=== PATIENT | female | born 1960 | race Caucasian/White ===

== ENCOUNTER 2020-04-29 13:10 | Emergency (ER) | payer MEDICARE, SELFPAY ==
[2020-04-29 13:15] VITALS: BP 113/59; PULSE 87; RESP 20; TEMP 36.4; O2SAT 98; BMI 22.8
--- NOTE | 2020-04-29 13:48 | XR_ITS ---
WS: [id number] PORTABLE CHEST HISTORY: chest pain COMPARISON: 03/04/2018 Mild pulmonary hyperinflation. Eventration of the LEFT hemidiaphragm. No pleural effusion or pneumoth orax. Cardiac size: Normal. Mediastinum/Aorta: Mild atherosclerosis aorta. No osseous abnormality seen. XR/XR chest 1V portable [id number] IMPRESSION: Mild hyperinflation. No pneumonia.
[2020-04-29 15:03] VITALS: BP 140/83; PULSE 79; RESP 16; O2SAT 99
--- NOTE | 2020-04-29 15:42 | W.ED.SOB ---
Documented by User: REMY Gallardo 05/01/20 06:59 HPI - SOB/Dyspnea General: Chief Complaint: Shortness of Breath/Dyspnea Stated Complaint: COPD complications Time Seen by Provider: 04/29/20 15:40 Source: patient Mode of arrival: ambulatory Limitations: no limitations History of Present Illness: HPI Narrative: Patient is a 59-year-old female with a history of COPD who presents to ED today with a complaint of shortness of breath over the past 3 to 4 days. Patient tells me she normally wears oxygen at night and sometimes with exertion but often can go throughout the day without wearing it. Patient tells me over the past 3 to 4 days she has had to wear her oxygen continuously. Patient is being managed by her PCP, Dr. Haq. Patient tells me she currently takes Spiriva, albuterol, and Dulera. Patient is not having any chest pain. She denies fevers, chills, body aches. Patient has not had any exposure to COVID. Patient continues to smoke sparingly-her last cigarette was yesterday. MD elicited complaint: shortness of breath Pertinent past history: COPD Onset (ago): day(s) Timing: constant Associated symptoms: Deny chest congestion, chest pain, fever(s), hemoptysis, lightheadedness, nausea, palpitations, syncope or vomiting Review of Systems Const: Denies: fever(s), chills, body aches, fatigue or malaise Card: Reports: dyspnea on exertion; Denies: chest pain, palpitations, irregular heart rhythm, edema, lightheadedness, syncope or pre-syncope Resp: Reports: dyspnea; Denies: productive cough, non-productive cough, pain on inspiration, hemoptysis or chest congestion GI: Denies: nausea or vomiting Neuro: Denies: headache(s) PFSH ED PFSH: Social History Smoking and tobacco status: current every day smoker Alcohol intake: never Housing: House Marital status: Current occupational status: disabled History of recent travel: No Physical Exam Const: COMMON NORMALS: no acute distress, average body habitus, patient oriented x3, no limitations, alert and well nourished GENERAL APPEARANCE: cooperative ORIENTATION/CONSCIOUSNESS: Yes awake, Yes oriented to person, Yes oriented to place and Yes oriented to time Resp: COMMON NORMALS: normal respiratory effort AUSCULTATION: other (course breath sounds throughout; improvement with coughing) Cardio: COMMON NORMALS: regular rate and regular rhythm RATE: regular rate RHYTHM: regular rhythm Extremity: COMMON NORMALS: no clubbing, cyanosis or edema, no calf tenderness and no pedal edema Neuro: COMMON NORMALS: patient oriented x3 SENSORIUM/ORIENTATION: Yes alert, Yes oriented to person, Yes oriented to place and Yes oriented to time Skin: COMMON NORMALS: no rashes or lesions noted GENERAL SKIN EXAM: no rashes or lesions noted Course Vital Signs: Vital signs: Vital Signs Temperature 97.6 F 04/29/20 13:15 Pulse Rate 74 04/29/20 18:54 Respiratory Rate 18 04/29/20 18:54 Blood Pressure 135/74 04/29/20 18:54 Pulse Oximetry 96 04/29/20 18:54 MDM - SOB/Dyspnea MDM Narrative: Medical decision making narrative: Care transferred to Nicolas Conte PA-C at shift change- Lab Data: Labs: Lab Results 04/29/20 04/29/20 04/29/20 Range/Units 15:47 16:36 16:36 WBC 12.7 H (4.0-10.0) 10^3/ uL RBC 4.67 (4.1-5.3) 10^6/u L Hgb 13.1 (11.5-15.3) g/dL Hct 42.3 (37.0-47.0) % MCV 90.6 (81-99) fL MCH 28.1 (28.0-34.0) pg MCHC 31.0 (30.0-36.0) g/dL RDW 13.0 (12.1-15.1) % Plt Count 478 H (130-400) 10^3/c mm MPV 8.2 (7.4-10.4) fL Neut % (Auto) 60.8 % Lymph % (Auto) 26.6 % [place] % (Auto) 6.8 % Eos % (Auto) 4.8 % Baso % (Auto) 0.5 % Neut # (Auto) 7.73 H (1.8-7.7) 10^3/u L Lymph # (Auto) 3.4 (0.8-4.8) 10^3/u L [place] # (Auto) 0.9 (0.2-0.9) 10^3/u L Eos # (Auto) 0.6 (0.0-0.8) 10^3/u L Baso # (Auto) 0.1 (0.0-0.1) 10^3/u L Nucleated RBC % (a uto) 0 % Nucleated RBCs # 0.0 /100WBC Sodium 134 L (136-145) mmol/L Potassium 4.6 (3.5-5.1) mmol/L Chloride 96 L (98-107) mmol/L Carbon Dioxide 30 H (22-29) mmol/L Anion Gap 12.6 (5-19) BUN 8 (8-23) mg/dL Creatinine 0.5 (0.5-0.9) mg/dL GFR Calculation 125.4 (90-130) mL/min Glucose 121 H (65-115) mg/dL Calculated Osmolal ity 278 L (285-295) mOsm/k g Calcium 9.1 (8.5-10.5) mg/dL Total Bilirubin 0.2 (0.15-1.2) mg/dL AST 12 (0-32) U/L ALT 11 (0-33) U/L Alkaline Phosphata se 67 (35-105) IU/L Total Protein 6.4 L (6.6-8.7) g/dL Albumin 4.1 (3.5-5.2) g/dL Globulin 2.3 (1.3-4.6) g/dL SARS-CoV-2 RNA (RT -PCR) Not detected (NOT DETECTED) Discharge Plan Discharge Patient Disposition: Home Clinical Impression: COPD exacerbation Condition: Stable Prescriptions: New levofloxacin 750 mg tablet 750 mg PO DAILY 5 Days Qty: 5 RF: 0 Medrol (Josue) 4 mg tablets,dose pack See Rx Instructions .ROUTE .COMPLEX Qty: 21 RF: 0 No Action loratadine 10 mg capsule 10 mg PO DAILY@0800 RF: 0 (DME) Oxygen Concentrator and portable tanks See Rx Instructions .Route .MEDSUPPLY Qty: 1 RF: 0 albuterol sulfate [ProAir HFA] 90 mcg/actuation HFA aerosol inhaler 1 - 2 puff INHALATION Q6H PRN (Reason: shortness of breath) Qty: 6.7 RF: 3 prednisone 20 mg tablet 10 mg PO DAILY@0800 RF: 0 trazodone 150 mg tablet 150 mg PO BEDTIME@1999 RF: 0 Advair Diskus 500-50 mcg/dose blister with device 1 inh INHALATION BID@0800,1999 RF: 0 Spiriva with HandiHaler 18 mcg capsule, w/inhalation device See Rx Instructions .ROUTE .COMPLEX RF: 0 tizanidine 4 mg capsule 4 mg PO BEDTIME@1999 RF: 0 Discharge Orders: Discharge ED (Routine); Ordered 04/29/20 Ordered By: Nicolas Conte Referrals: Ludwig Haq MD [Primary Care Provider] - Discharge Diet: Regular Discharge Activity: Increase activity as tolerated Patient Instructions: Chronic Obstructive Pulmonary Disease (ED) Activity Restrictions/Additional Instructions: Follow-up with medical provider as directed in 7 days. Take medications as prescribed. You were tested for COVID-19 today and the test is pending. Results should be back within the next 24 to 48 hours. The hospital will call you with test results or you can call appear to find out test results as well. Remember to self quarantine for the next couple days pending COVID-19 test results. If test is positive continue self quarantine for the next 12 days. Use your inhalers as previously prescribed and use oxygen as previously prescribed at home as well. Return to the ER or your medical provider if condition worsens. Please read and understand discharge instructions. If any questions, please ask. Coding Level of Care Code ED Rabble Furnace Tender for Chg Fwd Exam Detailed Documented by User: REMY Turpin 04/30/20 03:05 HPI - SOB/Dyspnea General: Chief Complaint: Shortness of Breath/Dyspnea Stated Complaint: COPD complications Time Seen by Provider: 04/29/20 15:40 PFSH ED PFSH: Social History Smoking and tobacco status: current every day smoker Alcohol intake: never Housing: House Marital status: Current occupational status: disabled History of recent travel: No Course Reevaluation(s): Reevaluation #1: Patient was sitting on chair in room when I went in to talk with patient about all the lab findings and chest x-ray report. Patient's O2 saturation was above 95% on room air and she was not wearing nasal cannula. Patient says she is feeling better now after getting Solu-Medrol and the DuoNeb breathing treatment. Vital Signs: Vital signs: Vital Signs Temperature 97.6 F 04/29/20 13:15 Pulse Rate 74 04/29/20 18:54 Respiratory Rate 18 04/29/20 18:54 Blood Pressure 135/74 04/29/20 18:54 Pulse Oximetry 96 04/29/20 18:54 MDM - SOB/Dyspnea MDM Narrative: Medical decision making narrative: Patient is a 59-year-old female with COPD and presents to the ED with shortness of breath. pt on oxygen at home at night and also can wear as needed during the day. Exam findings showed coarse breath sounds throughout with improvement when coughing. White blood cell count 12.7 and the rest of CBC and CMP was unremarkable. COVID-19 testing sent out and is pending. Chest x-ray showed no acute infiltrates or pneumonia seen. Patient was given DuoNeb breathing treatment and Solu-Medrol in the ED. Patient said her symptoms have improved and she is feeling better. Patient was discharged and given self quarantine instructions. She was told to return to ED if she has any worsening of symptoms. Follow-up with PCP in 7 to 10 days. Patient was sent home with a prescription for levofloxacin and Medrol Dosepak. Patient understood and agreed with plan. Lab Data: Attestation: I reviewed the patient's lab results. Labs: Lab Results 04/29/20 04/29/20 04/29/20 Range/Units 15:47 16:36 16:36 WBC 12.7 H (4.0-10.0) 10^3/ uL RBC 4.67 (4.1-5.3) 10^6/u L Hgb 13.1 (11.5-15.3) g/dL Hct 42.3 (37.0-47.0) % MCV 90.6 (81-99) fL MCH 28.1 (28.0-34.0) pg MCHC 31.0 (30.0-36.0) g/dL RDW 13.0 (12.1-15.1) % Plt Count 478 H (130-400) 10^3/c mm MPV 8.2 (7.4-10.4) fL Neut % (Auto) 60.8 % Lymph % (Auto) 26.6 % [place] % (Auto) 6.8 % Eos % (Auto) 4.8 % Baso % (Auto) 0.5 % Neut # (Auto) 7.73 H (1.8-7.7) 10^3/u L Lymph # (Auto) 3.4 (0.8-4.8) 10^3/u L [place] # (Auto) 0.9 (0.2-0.9) 10^3/u L Eos # (Auto) 0.6 (0.0-0.8) 10^3/u L Baso # (Auto) 0.1 (0.0-0.1) 10^3/u L Nucleated RBC % (a uto) 0 % Nucleated RBCs # 0.0 /100WBC Sodium 134 L (136-145) mmol/L Potassium 4.6 (3.5-5.1) mmol/L Chloride 96 L (98-107) mmol/L Carbon Dioxide 30 H (22-29) mmol/L Anion Gap 12.6 (5-19) BUN 8 (8-23) mg/dL Creatinine 0.5 (0.5-0.9) mg/dL GFR Calculation 125.4 (90-130) mL/min Glucose 121 H (65-115) mg/dL Calculated Osmolal ity 278 L (285-295) mOsm/k g Calcium 9.1 (8.5-10.5) mg/dL Total Bilirubin 0.2 (0.15-1.2) mg/dL AST 12 (0-32) U/L ALT 11 (0-33) U/L Alkaline Phosphata se 67 (35-105) IU/L Total Protein 6.4 L (6.6-8.7) g/dL Albumin 4.1 (3.5-5.2) g/dL Globulin 2.3 (1.3-4.6) g/dL SARS-CoV-2 RNA (RT -PCR) Not detected (NOT DETECTED) Imaging Data^: CXR: Attestation: I personally reviewed and interpreted this imaging study as follows: Radiologist's impression: [address] [place] [address] XRay Report Signed Patient: Lynne Calderon #: [id number] : 9Acct#:[id number] Age/Sex: 59 / FADM Date: 04/29/20 Loc: ERRoom/Bed: Attending Dr: Ordering Provider/Ordering MD: Vanessa Serrano Date of Service: 04/29/20 Procedure(s): XR chest 1V portable [id number] Accession Number(s): [id number] Report Number: [id number] WS: [id number] PORTABLE CHEST HISTORY: chest pain COMPARISON: 03/04/2018 Mild pulmonary hyperinflation. Eventration of the LEFT hemidiaphragm. No pleural effusion or pneumothorax. Cardiac size: Normal. Mediastinum/Aorta: Mild atherosclerosis aorta. No osseous abnormality seen. XR/XR chest 1V portable [id number] IMPRESSION: Mild hyperinflation. No pneumonia. Dictated By:Cassy Oliver DO Signed By:Cassy Oliver DOSigned Date/Time:04/29/201406 DD/ 140 Discharge Plan Discharge Patient Disposition: Home Clinical Impression: COPD exacerbation Condition: Stable Prescriptions: New levofloxacin 750 mg tablet 750 mg PO DAILY 5 Days Qty: 5 RF: 0 Medrol (Josue) 4 mg tablets,dose pack See Rx Instructions .ROUTE .COMPLEX Qty: 21 RF: 0 No Action loratadine 10 mg capsule 10 mg PO DAILY@0800 RF: 0 (DME) Oxygen Concentrator and portable tanks See Rx Instructions .Route .MEDSUPPLY Qty: 1 RF: 0 albuterol sulfate [ProAir HFA] 90 mcg/actuation HFA aerosol inhaler 1 - 2 puff INHALATION Q6H PRN (Reason: shortness of breath) Qty: 6.7 RF: 3 prednisone 20 mg tablet 10 mg PO DAILY@0800 RF: 0 trazodone 150 mg tablet 150 mg PO BEDTIME@2000 RF: 0 Advair Diskus 500-50 mcg/dose blister with device 1 inh INHALATION BID@0800,1999 RF: 0 Spiriva with HandiHaler 18 mcg capsule, w/inhalation device See Rx Instructions .ROUTE .COMPLEX RF: 0 tizanidine 4 mg capsule 4 mg PO BEDTIME@1999 RF: 0 Discharge Orders: Discharge ED (Routine); Ordered 04/29/20 Ordered By: Nicolas Conte Referrals: Ludwig Haq MD [Primary Care Provider] - Discharge Diet: Regular Discharge Activity: Increase activity as tolerated Patient Instructions: Chronic Obstructive Pulmonary Disease (ED) Activity Restrictions/Additional Instructions: Follow-up with medical provider as directed in 7 days. Take medications as prescribed. You were tested for COVID-19 today and the test is pending. Results should be back within the next 24 to 48 hours. The hospital will call you with test results or you can call appear to find out test results as well. Remember to self quarantine for the next couple days pending COVID-19 test results. If test is positive continue self quarantine for the next 12 days. Use your inhalers as previously prescribed and use oxygen as previously prescribed at home as well. Return to the ER or your medical provider if condition worsens. Please read and understand discharge instructions. If any questions, please ask. Coding Level of Care Code ED Rabble Furnace Tender for Justin Fwd Exam Detailed
[2020-04-29 15:43] VITALS: BP 168/101; PULSE 80; RESP 16; O2SAT 95
[2020-04-29 16:43] LABS: Basophils # 0.1 10^3/uL (0.0-0.1); Basophils % 0.5 %; Eosinophils # 0.6 10^3/uL (0.0-0.8); Eosinophils % 4.8 %; Hematocrit 42.3 % (37.0-47.0); Hemoglobin 13.1 g/dL (11.5-15.3); Lymphocytes # 3.4 10^3/uL (0.8-4.8); Lymphocytes % 26.6 %; Mean Corpuscular Hemoglobin 28.1 pg (28.0-34.0); Mean Corpuscular Volume 90.6 fL (81-99); Mean Platelet Volume 8.2 fL (7.4-10.4); Monocytes # 0.9 10^3/uL (0.2-0.9); Monocytes % 6.8 %; Neutrophils # 7.73 10^3/uL (1.8-7.7); Neutrophils % 60.8 %; Nucleated Red Blood Cells % 0 %; Platelet Count 478 10^3/cmm (130-400); Red Blood Count 4.67 10^6/uL (4.1-5.3); White Blood Count 12.7 10^3/uL (4.0-10.0)
[2020-04-29] MEDS: ipratropium-albuterol 3 mL Neb INHALATION (16:45)
[2020-04-29 16:46] VITALS: PULSE 76; RESP 17; O2SAT 99
[2020-04-29 16:52] VITALS: PULSE 78
[2020-04-29 17:08] LABS: Alanine Aminotransferase 11 U/L (0-33); Albumin Level 4.1 g/dL (3.5-5.2); Alkaline Phosphatase 67 IU/L (35-105); Anion Gap 12.6 (5-19); Aspartate Amino Transferase 12 U/L (0-32); Blood Urea Nitrogen 8 mg/dL (8-23); Calcium 9.1 mg/dL (8.5-10.5); Carbon Dioxide 30 mmol/L (22-29); Chloride 96 mmol/L (98-107); Globulin 2.3 g/dL (1.3-4.6); Glomerular Filtration Rate 125.4 mL/min (90-130); Glucose 121 mg/dL (65-115); Osmolality Calculated 278 mOsm/kg (285-295); Potassium 4.6 mmol/L (3.5-5.1); Sodium 134 mmol/L (136-145); Total Bilirubin 0.2 mg/dL (0.15-1.2); Total Protein 6.4 g/dL (6.6-8.7)
[2020-04-29 18:54] VITALS: BP 135/74; PULSE 74; RESP 18; O2SAT 96
--- NOTE | 2020-04-29 19:12 | ECG_ITS ---
[facility] Test Date: 2020-04-29 Pat Name: Lynne Calderon Department: Room: Gender: Female [employer]: : 1960 Requested By: Nicolas Conte Order Number: [id number] Ann MD: Quirino Mcfadden M.D. Measurements Intervals [place] Rate: 100 P: 84 IN: 130 QRS: 77 QRSD: 96 T: 73 QT: 323 QTc: 417 Interpretive Statements SINUS TACHYCARDIA NONSPECIFIC T-WAVE ABNORMALITY Compared to ECG 01/11/2018 15:38:32 T-wave abnormality now present Sinus rhythm no longer present Electronically Signed On 04-29-2020 19:32:56 RIG BUILDER by Quirino Mcfadden M.D. [email or web address]/store/[id number] f
[2020-04-30 20:53] LABS: Quest SARS-CoV-2 RNA NOT DETECTED (NOT DETECTED)
--- NOTE | 2020-05-01 09:47 | PC.NURSE ---
Patient notified of COVID results at this time.
== END 2020-04-29 18:55 | disposition home or self-care (01) ==
PROVIDERS: Physician Assistant; Emergency Provider Physician Assistant; PCP Internal Medicine
DX: J44.1 Chronic obstructive pulmonary disease with (acute) exacerbation (principal); F17.210 Nicotine dependence, cigarettes, uncomplicated
CPT/HCPCS: 12345; 36415; 71045; 80053; 85025; 87635; 93005; 94640; 96374; 99282; 99283; J2930

== ENCOUNTER 2020-07-12 05:26 | Inpatient (IN) | payer MEDICARE, SELFPAY ==
[2020-07-12] VITALS (41 sets, daily range): BP systolic 103–187; BP diastolic 58–101; PULSE 65–103; RESP 13–31; TEMP 36.4–37.1; O2SAT 91–100; BMI 22.1
--- NOTE | 2020-07-12 05:31 | XR_ITS ---
WS: [id number] XR chest 1V portable [id number] REASON FOR EXAM: dizziness FINDINGS: The chest is unchanged compared to previous examination of 04/29/2020. The heart and mediastinum are within normal limits. Minor calcified granulomatous changes in both hemithoraces. Chronic fibronodular changes in both lung apices. No active pulmonary parenchymal pleural disease. Flattening of the hemidiaphragms suggesting hyperexp ansion slice obstructive lung disease. XR/XR chest 1V portable [id number] IMPRESSION: No acute chest abnormality. Hyperexpansion as above.
--- NOTE | 2020-07-12 05:31 | CTR_ITS ---
PROCEDURE INFORMATION: Exam: CT Head Without Contrast Exam date and time: 07/12/2020 5:35 AM Age: 60 years old Clinical indication: Patient HX: Dizziness and lethargy TECHNIQUE: Imaging protocol: Computed tomography of the head without contrast. Radiation optimization: All CT scans at this facility use at least one of these dose optimization techniques: automated exposure control; mA and/or kV adjustment per patient size (includes targeted exams where dose is matched to clinical indication); or iterative reconstruction. COMPARISON: No relevant prior studies available. RADIATION DOSE METRICS: Total DLP (mGy-cm): 651.73 FINDINGS: Brain: Normal. No hemorrhage. Unremarkable white matter. No mass effect. Cerebral ventricles: No ventriculomegaly. Bones/joints: Unremarkable. No acute fracture. Paranasal sinuses: Visualized sinuses are unremarkable. No fluid levels. Mastoid air cells: Visualized mastoid air cells are well aerated. Soft tissues: Unremarkable. CT/CT head wo con* [id number] IMPRESSION: No acute intracranial abnormality. Radiation Dose CTDIVOL = (mGy): DLP = 651.73 (mGy-cm)
--- NOTE | 2020-07-12 05:32 | ECG_ITS ---
[facility] Test Date: 2020-07-12 Pat Name: Lynne Calderon Department: Room: Gender: Female Director Of Billing: : 1960 Requested By: Concetta Del Angel Order Number: [id number] Ann MD: Carline Sears M.D. Measurements Intervals [place] Rate: 64 P: 80 TX: 155 QRS: 54 QRSD: 93 T: 56 QT: 418 QTc: 434 Interpretive Statements SINUS RHYTHM Compared to ECG 04/29/2020 13:25:24 Sinus tachycardia no longer present T-wave abnormality no longer present Electronically Signed On 07-12-2020 23:11:37 CDT by Carline Sears M.D. [id number]
--- NOTE | 2020-07-12 05:33 | ED_ITS ---
Documented by User: Concetta Del Angel MD 07/12/20 05:44 HPI - Dizziness General: Chief Complaint: Shortness of Breath/Dyspnea Stated Complaint: SOB, N/V Time Seen by Provider: 07/12/20 05:31 Source: patient and EMS Mode of arrival: EMS Limitations: no limitations History of Present Illness: HPI Narrative: 60-year-old female who is here by EMS states she has been extremely dizzy over the last 2 days. She states that she has had difficulty walking and feels like the room is spinning especially with sudden movements. She is also had nausea and vomiting. She states it improves slightly with rest. She states that she is also been out of her trazodone for last week and has been feeling anxious and feeling like she cannot get a deep breath and is having shortness of breath. Here she is in no distress and is on her 3 L at baseline and 100% on that. She denies any chest pain. She has vomited on the way here Associated symptoms: Reports nausea and vomiting; Denies chest pain or chills Review of Systems Const: Denies: fever(s), chills, body aches or change in appetite Eyes: Denies: blurry vision or eye discomfort ENMT: Denies: throat pain or dental pain Card: Denies: chest pain Resp: Denies: dyspnea GI: Reports: nausea and vomiting : Denies: dysuria Musc: Denies: neck pain or back pain Skin/Breast: Denies: rash Neuro: Reports: difficulty walking and dizziness Psych: Denies: depression Cristofer/Lymph: Denies: easy bruising All/Imm: Denies: urticaria PFS ED PFSH: Social History Smoking and tobacco status: current every day smoker Alcohol intake: never Housing: House Marital status: Current occupational status: disabled History of recent travel: No Physical Exam Const: COMMON NORMALS: no acute distress, patient oriented x3 and healthy appearing HENMT: COMMON NORMALS: normocephalic and atraumatic HEAD & SCALP: normocephalic and atraumatic Eye: COMMON NORMALS: Equal, round and reactive pupils present and EOMs intact bilaterally PUPIL: Yes Equal, round and reactive pupils present Neck/C-Spine: COMMON NORMALS: full ROM and supple Chest: COMMONS NORMALS: normal inspection of the chest and normal palpation of entire chest wall Resp: COMMON NORMALS: normal respiratory effort, No retractions, No use of accessory muscles and clear to auscultation bilaterally AUSCULTATION: clear to auscultation bilaterally Cardio: COMMON NORMALS: regular rate, regular rhythm and No murmurs present (Cardio) RATE: regular rate RHYTHM: regular rhythm GI: COMMON NORMALS: Normal to inspection, nondistended, normoactive bowel sounds present, Soft to palpation, non-tender and no masses PALPATION: Yes Soft to palpation Extremity: COMMON NORMALS: normal to inspection and full ROM Neuro: COMMON NORMALS: patient oriented x3 and moves all extremities CRANIAL NERVES: Yes CN normal except as noted SPEECH: speech normal MOTOR EXAM: 5/5 motor strength present throughout Psych: COMMON NORMALS: mental status grossly normal, Normal thought process present and cooperative THOUGHT PROCESS: Normal thought process present Skin: COMMON NORMALS: no rashes or lesions noted and no wounds GENERAL SKIN EXAM: no rashes or lesions noted Course Vital Signs: Vital signs: Vital Signs Temperature 97.6 F 07/12/20 05:27 Pulse Rate 67 07/12/20 07:11 Respiratory Rate 22 H 07/12/20 07:11 Blood Pressure 166/91 07/12/20 07:11 Pulse Oximetry 100 07/12/20 07:11 MDM - Dizziness Lab Data: Labs: Lab Results 07/12/20 07/12/20 07/12/20 Range/Units 05:15 05:25 05:25 WBC 17.3 H (4.0-10.0) 10^3/ uL RBC 4.50 (4.1-5.3) 10^6/u L Hgb 12.8 (11.5-15.3) g/dL Hct 37.9 (37.0-47.0) % MCV 84.2 (81-99) fL MCH 28.4 (28.0-34.0) pg MCHC 33.8 (30.0-36.0) g/dL RDW 12.7 (12.1-15.1) % Plt Count 554 H (130-400) 10^3/c mm MPV 8.2 (7.4-10.4) fL Neut % (Auto) 81.2 % Lymph % (Auto) 12.7 % [place] % (Auto) 4.3 % Eos % (Auto) 0.1 % Baso % (Auto) 0.3 % Neut # (Auto) 14.07 H (1.8-7.7) 10^3/u L Lymph # (Auto) 2.2 (0.8-4.8) 10^3/u L [place] # (Auto) 0.7 (0.2-0.9) 10^3/u L Eos # (Auto) 0.0 (0.0-0.8) 10^3/u L Baso # (Auto) 0.1 (0.0-0.1) 10^3/u L Nucleated RBC % (a uto) 0 % Nucleated RBCs # 0.0 /100WBC Sodium 117 L* (136-145) mmol/L Potassium 4.0 (3.5-5.1) mmol/L Chloride 83 L (98-107) mmol/L Carbon Dioxide 23 (22-29) mmol/L Anion Gap 15.0 (5-19) BUN 7 L (8-23) mg/dL Creatinine 0.4 L (0.5-0.9) mg/dL GFR Calculation 161.7 H (90-130) mL/min Glucose 106 (65-115) mg/dL Calculated Osmolal ity 242 L (285-295) mOsm/k g Calcium 8.6 (8.5-10.5) mg/dL Total Bilirubin 0.7 (0.15-1.2) mg/dL AST 18 (0-32) U/L ALT 11 (0-33) U/L Alkaline Phosphata se 74 (35-105) IU/L NT-Pro-B Natriuret Pep 551 H (0-125) pg/mL Total Protein 6.7 (6.6-8.7) g/dL Albumin 4.3 (3.5-5.2) g/dL Globulin 2.4 (1.3-4.6) g/dL Lipase 11 L (13-60) U/L TSH 1.12 (0.27-4.20) uIU/ mL Urine Color (Yellow) Urine Appearance (CLEAR) Urine pH (5-7) Ur Specific Gravit y (1.005-1.030) Urine Protein (Negative) Urine Glucose (UA) (Normal) Urine Ketones (Negative) Urine Blood (Negative) Urine Nitrate (Negative) Urine Bilirubin (Negative) Prot Sulfosalicyli c Acd (Negative) Urine Urobilinogen (Negative) mg/dL Ur Leukocyte Taya ase (Negative) Urine RBC (0-2) /hpf Urine WBC (0-5) /hpf Ur Squamous Epith Cells (0-5) /hpf Amorphous Sediment /hpf Urine Bacteria (NONE) /hpf Urine Mucus /hpf 07/12/20 Range/Units 06:03 WBC (4.0-10.0) 10^3/ uL RBC (4.1-5.3) 10^6/u L Hgb (11.5-15.3) g/dL Hct (37.0-47.0) % MCV (81-99) fL MCH (28.0-34.0) pg MCHC (30.0-36.0) g/dL RDW (12.1-15.1) % Plt Count (130-400) 10^3/c mm MPV (7.4-10.4) fL Neut % (Auto) % Lymph % (Auto) % [place] % (Auto) % Eos % (Auto) % Baso % (Auto) % Neut # (Auto) (1.8-7.7) 10^3/u L Lymph # (Auto) (0.8-4.8) 10^3/u L [place] # (Auto) (0.2-0.9) 10^3/u L Eos # (Auto) (0.0-0.8) 10^3/u L Baso # (Auto) (0.0-0.1) 10^3/u L Nucleated RBC % (a uto) % Nucleated RBCs # /100WBC Sodium (136-145) mmol/L Potassium (3.5-5.1) mmol/L Chloride (98-107) mmol/L Carbon Dioxide (22-29) mmol/L Anion Gap (5-19) BUN (8-23) mg/dL Creatinine (0.5-0.9) mg/dL GFR Calculation (90-130) mL/min Glucose (65-115) mg/dL Calculated Osmolal ity (285-295) mOsm/k g Calcium (8.5-10.5) mg/dL Total Bilirubin (0.15-1.2) mg/dL AST (0-32) U/L ALT (0-33) U/L Alkaline Phosphata se (35-105) IU/L NT-Pro-B Natriuret Pep (0-125) pg/mL Total Protein (6.6-8.7) g/dL Albumin (3.5-5.2) g/dL Globulin (1.3-4.6) g/dL Lipase (13-60) U/L TSH (0.27-4.20) uIU/ mL Urine Color Yellow (Yellow) Urine Appearance Clear (CLEAR) Urine pH 8 H (5-7) Ur Specific Gravit y 1.015 (1.005-1.030) Urine Protein Neg (Negative) Urine Glucose (UA) Norm (Normal) Urine Ketones 1+ H (Negative) Urine Blood 2+ H (Negative) Urine Nitrate Negative (Negative) Urine Bilirubin Neg (Negative) Prot Sulfosalicyli c Acd Negative (Negative) Urine Urobilinogen Norm (Negative) mg/dL Ur Leukocyte Taya ase Negative (Negative) Urine RBC 5-10 H (0-2) /hpf Urine WBC 0-4 H (0-5) /hpf Ur Squamous Epith Cells 0-4 H (0-5) /hpf Amorphous Sediment 2+ /hpf Urine Bacteria Trace (NONE) /hpf Urine Mucus Trace /hpf EKG Data^: EKG 1: Attestation: I personally reviewed and interpreted this EKG as follows: EKG interpretation date: 07/12/20 EKG interpretation time: 05:38 Interpretation: nsr hr [address] or t wave abnormalities qrs 93 qtc 428 Discharge Plan Discharge Patient Disposition: Admitted As Inpatient Admit Provider: Lamine Sorenson Coding Level of Care Code ED Neonatal Doctor for Chg Fwd Exam Comprehensive Documented by User: Eugenia Jiang MD 07/12/20 08:07 HPI - Dizziness General: Chief Complaint: Shortness of Breath/Dyspnea Stated Complaint: SOB, N/V Time Seen by Provider: 07/12/20 05:31 PFS ED PFSH: Social History Smoking and tobacco status: current every day smoker Alcohol intake: never Housing: House Marital status: Current occupational status: disabled History of recent travel: No Course Vital Signs: Vital signs: Vital Signs Temperature 97.6 F 07/12/20 05:27 Pulse Rate 67 07/12/20 07:11 Respiratory Rate 22 H 07/12/20 07:11 Blood Pressure 166/91 07/12/20 07:11 Pulse Oximetry 100 07/12/20 07:11 MDM - Dizziness MDM Narrative: Medical decision making narrative: I received signout from Dr. Del Angel at 600. This is a 60-year-old female with history of COPD who has had vertigo, headache, nausea, vomiting, shortness of breath, and generalized weakness for the past 2 to 3 days. She is unable to stand up due to dizziness, and becomes extremely dizzy and nauseous with any movement. CT head does not show any acute abnormalities, specifically no subarachnoid hemorrhage. Chest x-ray shows no consolidation, only changes of chronic emphysema. Critically low sodium, 117 with concordant decrease in chloride. Potassium 4.0 TSH wnl, BNP 551, no baseline for comparison. Clinically does not appear fluid overloaded. Last labs were in April 2020, her sodium was 134 at that time. The only medication change since then has been the addition of trazodone for sleep. The patient denies excessive water intake, kknf-[id number]-[id number] supplements, restrictive diet, or other changes that could explain this new change. On exam she appears ill, frail, flushed. Actively vomiting. She has no nystagmus. Face is symmetric. pupils are equal and reactive. EOMs intact. No tremor or abnormal movements. Nonfocal, generalized muscle weakness.head impulse test is negative. TMs clear bilaterally. Fine motor and coordination intact. Romberg not tested, but per Dr. Del Angel, it was positive. No edema. No JVD. Abdomen soft and nontender. Slight erythema and swelling of her lower face-could be her baseline. I will start 3% saline 150 mL's per hour x2 hours, and call the hospitalist to request ICU admission for further eval and treatment. Discussed the case with Dr. Sorenson, he accepts the admission. Lab Data: Labs: Lab Results 07/12/20 07/12/20 07/12/20 Range/Units 05:15 05:25 05:25 WBC 17.3 H (4.0-10.0) 10^3/ uL RBC 4.50 (4.1-5.3) 10^6/u L Hgb 12.8 (11.5-15.3) g/dL Hct 37.9 (37.0-47.0) % MCV 84.2 (81-99) fL MCH 28.4 (28.0-34.0) pg MCHC 33.8 (30.0-36.0) g/dL RDW 12.7 (12.1-15.1) % Plt Count 554 H (130-400) 10^3/c mm MPV 8.2 (7.4-10.4) fL Neut % (Auto) 81.2 % Lymph % (Auto) 12.7 % Callaway % (Auto) 4.3 % Eos % (Auto) 0.1 % Baso % (Auto) 0.3 % Neut # (Auto) 14.07 H (1.8-7.7) 10^3/u L Lymph # (Auto) 2.2 (0.8-4.8) 10^3/u L [place] # (Auto) 0.7 (0.2-0.9) 10^3/u L Eos # (Auto) 0.0 (0.0-0.8) 10^3/u L Baso # (Auto) 0.1 (0.0-0.1) 10^3/u L Nucleated RBC % (a uto) 0 % Nucleated RBCs # 0.0 /100WBC Sodium 117 L* (136-145) mmol/L Potassium 4.0 (3.5-5.1) mmol/L Chloride 83 L (98-107) mmol/L Carbon Dioxide 23 (22-29) mmol/L Anion Gap 15.0 (5-19) BUN 7 L (8-23) mg/dL Creatinine 0.4 L (0.5-0.9) mg/dL GFR Calculation 161.7 H (90-130) mL/min Glucose 106 (65-115) mg/dL Calculated Osmolal ity 242 L (285-295) mOsm/k g Calcium 8.6 (8.5-10.5) mg/dL Total Bilirubin 0.7 (0.15-1.2) mg/dL AST 18 (0-32) U/L ALT 11 (0-33) U/L Alkaline Phosphata se 74 (35-105) IU/L NT-Pro-B Natriuret Pep 551 H (0-125) pg/mL Total Protein 6.7 (6.6-8.7) g/dL Albumin 4.3 (3.5-5.2) g/dL Globulin 2.4 (1.3-4.6) g/dL Lipase 11 L (13-60) U/L TSH 1.12 (0.27-4.20) uIU/ mL Urine Color (Yellow) Urine Appearance (CLEAR) Urine pH (5-7) Ur Specific Gravit y (1.005-1.030) Urine Protein (Negative) Urine Glucose (UA) (Normal) Urine Ketones (Negative) Urine Blood (Negative) Urine Nitrate (Negative) Urine Bilirubin (Negative) Prot Sulfosalicyli c Acd (Negative) Urine Urobilinogen (Negative) mg/dL Ur Leukocyte Taya ase (Negative) Urine RBC (0-2) /hpf Urine WBC (0-5) /hpf Ur Squamous Epith Cells (0-5) /hpf Amorphous Sediment /hpf Urine Bacteria (NONE) /hpf Urine Mucus /hpf 07/12/20 Range/Units 06:03 WBC (4.0-10.0) 10^3/ uL RBC (4.1-5.3) 10^6/u L Hgb (11.5-15.3) g/dL Hct (37.0-47.0) % MCV (81-99) fL MCH (28.0-34.0) pg MCHC (30.0-36.0) g/dL RDW (12.1-15.1) % Plt Count (130-400) 10^3/c mm MPV (7.4-10.4) fL Neut % (Auto) % Lymph % (Auto) % [place] % (Auto) % Eos % (Auto) % Baso % (Auto) % Neut # (Auto) (1.8-7.7) 10^3/u L Lymph # (Auto) (0.8-4.8) 10^3/u L [place] # (Auto) (0.2-0.9) 10^3/u L Eos # (Auto) (0.0-0.8) 10^3/u L Baso # (Auto) (0.0-0.1) 10^3/u L Nucleated RBC % (a uto) % Nucleated RBCs # /100WBC Sodium (136-145) mmol/L Potassium (3.5-5.1) mmol/L Chloride (98-107) mmol/L Carbon Dioxide (22-29) mmol/L Anion Gap (5-19) BUN (8-23) mg/dL Creatinine (0.5-0.9) mg/dL GFR Calculation (90-130) mL/min Glucose (65-115) mg/dL Calculated Osmolal ity (285-295) mOsm/k g Calcium (8.5-10.5) mg/dL Total Bilirubin (0.15-1.2) mg/dL AST (0-32) U/L ALT (0-33) U/L Alkaline Phosphata se (35-105) IU/L NT-Pro-B Natriuret Pep (0-125) pg/mL Total Protein (6.6-8.7) g/dL Albumin (3.5-5.2) g/dL Globulin (1.3-4.6) g/dL Lipase (13-60) U/L TSH (0.27-4.20) uIU/ mL Urine Color Yellow (Yellow) Urine Appearance Clear (CLEAR) Urine pH 8 H (5-7) Ur Specific Gravit y 1.015 (1.005-1.030) Urine Protein Neg (Negative) Urine Glucose (UA) Norm (Normal) Urine Ketones 1+ H (Negative) Urine Blood 2+ H (Negative) Urine Nitrate Negative (Negative) Urine Bilirubin Neg (Negative) Prot Sulfosalicyli c Acd Negative (Negative) Urine Urobilinogen Norm (Negative) mg/dL Ur Leukocyte Taya ase Negative (Negative) Urine RBC 5-10 H (0-2) /hpf Urine WBC 0-4 H (0-5) /hpf Ur Squamous Epith Cells 0-4 H (0-5) /hpf Amorphous Sediment 2+ /hpf Urine Bacteria Trace (NONE) /hpf Urine Mucus Trace /hpf Discharge Plan Discharge Patient Disposition: Admitted As Inpatient Admit Provider: Lamine Sorenson Coding Level of Care Code ED Neonatal Doctor for Chg Fwd Exam Comprehensive
[2020-07-12 05:42] LABS: Basophils # 0.1 10^3/uL (0.0-0.1); Basophils % 0.3 %; Eosinophils % 0.1 %; Hematocrit 37.9 % (37.0-47.0); Hemoglobin 12.8 g/dL (11.5-15.3); Lymphocytes # 2.2 10^3/uL (0.8-4.8); Lymphocytes % 12.7 %; Mean Corpuscular HGB Conc 33.8 g/dL (30.0-36.0); Mean Corpuscular Hemoglobin 28.4 pg (28.0-34.0); Mean Corpuscular Volume 84.2 fL (81-99); Mean Platelet Volume 8.2 fL (7.4-10.4); Monocytes # 0.7 10^3/uL (0.2-0.9); Monocytes % 4.3 %; Neutrophils # 14.07 10^3/uL (1.8-7.7); Neutrophils % 81.2 %; Nucleated Red Blood Cells % 0 %; Platelet Count 554 10^3/cmm (130-400); Red Cell Distribution Width 12.7 % (12.1-15.1); White Blood Count 17.3 10^3/uL (4.0-10.0)
[2020-07-12] MEDS: meclizine 25 mg tablet 50 MG PO (05:54)
[2020-07-12 05:59] LABS: Alanine Aminotransferase 11 U/L (0-33); Albumin Level 4.3 g/dL (3.5-5.2); Alkaline Phosphatase 74 IU/L (35-105); Aspartate Amino Transferase 18 U/L (0-32); Blood Urea Nitrogen 7 mg/dL (8-23); Calcium 8.6 mg/dL (8.5-10.5); Carbon Dioxide 23 mmol/L (22-29); Globulin 2.4 g/dL (1.3-4.6); Glomerular Filtration Rate 161.7 mL/min (90-130); Glucose 106 mg/dL (65-115); Lipase 11 U/L (13-60); Osmolality Calculated 242 mOsm/kg (285-295); Total Bilirubin 0.7 mg/dL (0.15-1.2); Total Protein 6.7 g/dL (6.6-8.7)
[2020-07-12 06:33] LABS: Chloride 83 mmol/L (98-107)
[2020-07-12 06:35] LABS: Sodium 117 mmol/L (136-145)
[2020-07-12 06:41] LABS: Add Urine Microscopic? YES; Bilirubin Urine Neg (Negative); Blood Urine 2+ (Negative); Glucose Urine UA Norm (Normal); Ketones Urine 1+ (Negative); Leukocyte Esterase Urine Negative (Negative); Nitrate Urine Negative (Negative); Protein Urine Neg (Negative); Specific Gravity, Urine 1.015 (1.005-1.030); Sulfosalicylic Acid Urine Negative (Negative); Urine Appearance Clear (CLEAR); Urine Color Yellow (Yellow); Urobilinogen Urine Norm (Negative); pH Urine 8 (5-7)
[2020-07-12 06:45] LABS: WBC Urine 0-4 /hpf (0-5)
[2020-07-12 06:46] LABS: Add Urine Culture? No; Amorphous Sediment Urine 2+ /hpf; Bacteria Urine TRACE /hpf; Mucus Urine TRACE /hpf; Squamous Epithelial Cell Urine 0-4 /hpf (0-5)
[2020-07-12 07:14] LABS: NT Pro B Type Natriuretic Pept 551 pg/mL (0-125); Thyroid Stimulating Hormone 1.12 uIU/mL (0.27-4.20)
[2020-07-12] MEDS: ondansetron 2 mg/ML SDV 2 mL 4 MG IVP (07:25)
[2020-07-12 08:46] LABS: Urine Random Sodium 91 mmol/L
--- NOTE | 2020-07-12 09:18 | CT_ITS ---
WS: [id number] CT CHEST TECHNIQUE: Noncontrast CT of the chest with coronal and sagittal reformatted images. CLINICAL INFORMATION: Ac Hyponatremia COMPARISON: None. DLP: 357.[address] scans at [facility] use at least one of these dose optimization techniques: automat ed exposure control; mA and/or kV adjustment per patient size (includes targeted exams where dose is matched to clinical indication); or iterative reconstruction. FINDINGS: Moderate chronic emphysematous changes worse in the lung apices. Slight subsegmental atelectasis in t he lung bases. No acute pulmonary infiltrates. No focal pneumonia or pleural fluid. Aortic calcification. Coronary calcification. No mediastinal or hilar lymphadenopathy. Adrenal glands are normal. No axillary lymphadenopathy. Partially visualized cholelithiasis. Normal GE junction. Mi ld thoracic kyphosis. Mild hypertrophic changes thoracic spine. CT/CT chest wo con [id number] IMPRESSION: 1. Moderate chronic emphysematous changes. No acute pulmonary infiltrates. 2. Slight subsegmental atelectasis in the lung bases right greater than left. 3. No mediastinal or hilar lymphadenopathy. 4. Cholelithiasis.
--- NOTE | 2020-07-12 09:19 | PM.HP ---
Providers/Chief Complaint Admitting Physician: Lamine Sorenson MD Primary Care Provider: Ludwig Haq MD Chief Complaint: SOB , N , V History of Present Illness Lynne Calderon is a 60 year old female with PMH of COPD on 3Ls home oxygen , chronic smoker , Depression was brought in today with c/o vertigo fells as if objects in the room is spinning infront of her eyes,she is also complaining of generalized weakness, gait instability feels that she will fall if stand, also has nausea and vomiting all of these symptoms are going on for the last 2 days. Patient has not used Trazadone for last 1 week,and is complaining of anxiety. She was worked up for above mentioned complaint. C.T Head without contrast :No acute intra cranial pathology. Xray chest :No consolidation, chronic emphysema. C.T Chest without contrast : Moderate chronic emphysematous changes. No acute pulmonary infiltrates. Slight subsegmental atelectasis in the lung bases right greater than left. No mediastinal or hilar lymphadenopathy. Pertinent Labs : BMP : Serum Na : 117 ( most recent documented serum sodium 134 - 05/16 ) , k : 4.4 , Cl: 89 , BUN/SCR : 11/0.5 : TSH : 1.12, Random Cortisol : 4.80 Serum Osmolality : Pending , Urine Osmolality :Pending ,Urine sodium : 91 , Urine Specific [place] : 1.015. ECA Medications : 3% saline 150 mL's per hour x2 hours. Review of Systems Card: Denies: palpitations, edema or swelling of feet/ankles Resp: Denies: wheezing or pain on inspiration GI: Denies: abdominal pain or constipation : Denies: flank pain Musc: Denies: back pain, extremity pain or extremity swelling Medications/Allergies Home Medications Medication Instructions Recorded Confirmed Last Taken Type loratadine 10 mg capsule 10 mg PO DAILY@0800 07/25/19 07/12/20 07/11/20 History Oxygen Concentrator and portable #1 ea 12/05/19 07/12/20 Unknown Rx tanks albuterol sulfate 90 mcg/actuation 1 - 2 puff INHALATION Q6H PRN #6.7 04/24/20 07/12/20 04/29/20 Rx aerosol inhaler gm fluticasone propion-salmeterol 1 inh INHALATION BID@0800,199904/29/20 07/12/20 04/29/20 History [Advair Diskus] tiotropium bromide [Spiriva with See Rx Instructions .ROUTE .COMPLEX 04/29/20 07/12/20 07/11/20 History HandiHaler] tizanidine 4 mg PO BEDTIME@199904/29/20 07/12/20 04/28/20 History prednisone 10 mg PO DAILY 07/12/20 07/12/20 07/11/20 History trazodone 150 mg PO BEDTIME 07/12/20 07/12/20 07/11/20 History Allergies Allergy/AdvReac Type Severity Reaction Status Date / Time No Known Allergies Allergy Verified 04/29/20 13:19 PFSH Acute PFSH: Social History Smoking and tobacco status: current every day smoker Alcohol intake: never Housing: House Marital status: Current occupational status: disabled History of recent travel: No Vitals/I&O/Wt Last Vital Signs Temp 97.6 F 07/12/20 05:27 Pulse 71 07/12/20 09:00 Resp 22 H 07/12/20 09:00 BP 145/61 07/12/20 09:00 Pulse Ox 100 07/12/20 09:00 07/11/20 07/12/20 07/12/20 22:59 06:59 14:59 Intake Total 300 / 300 Balance 300 / 300 Weight last 48 hrs Weight 56.699 kg Physical Exam Const: COMMON NORMALS: patient oriented x3 HENMT: COMMON NORMALS: normocephalic, atraumatic, hearing grossly normal bilaterally and external ears normal HEAD & SCALP: normocephalic and atraumatic EXTERNAL EAR: Yes external ears normal Eye: COMMON NORMALS: no scleral icterus GENERAL EYE: appearance normal, both eyes and all related structures Chest: CHEST: Yes Symmetrical chest wall rise Resp: COMMON NORMALS: clear to auscultation bilaterally EFFORT & INSPECTION: Yes symmetric chest movement AUSCULTATION: clear to auscultation bilaterally Cardio: COMMON NORMALS: regular rate, regular rhythm, S1 normal heart sound present, S2 normal heart sound present, No gallops present (Cardio), No murmurs present (Cardio), No rub (Cardio) and Peripheral pulses 2+ throughout RATE: regular rate RHYTHM: regular rhythm HEART SOUNDS: S1 normal heart sound present and S2 normal heart sound present PERIPHERAL PULSES: Peripheral pulses 2+ throughout GI: COMMON NORMALS: Normal to inspection, nondistended, normoactive bowel sounds present, Soft to palpation, non-tender, No hepatosplenomegaly present and no masses AUSCULTATION: Yes normoactive bowel sounds PALPATION: Yes Soft to palpation and Yes No hepatosplenomegaly present RECTAL EXAM: deferred Extremity: COMMON NORMALS: no clubbing, cyanosis or edema and no pedal edema Neuro: COMMON NORMALS: patient oriented x3, CN's II-XII intact bilaterally, moves all extremities, no focal motor deficits and no sensory deficits noted SENSORIUM/ORIENTATION: Yes alert, Yes oriented to person, Yes oriented to place and Yes oriented to time SPEECH: speech normal MOTOR EXAM: 5/5 motor strength present throughout, Pronator motor function not present, Normal motor muscle tone present throughout and Motor abnormalities not present Data : 07/12/20 05:25 07/12/20 17:15 A&P Assessment and plan (1) Hyponatremia: Symptomatic Euvolemic Hyponatremia : 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 BMP : Serum Na : 117 ( most recent documented serum sodium 134 - 05/16 ) , k : 4.4 , Cl: 89 , BUN/SCR : 11/0.5 : TSH : 1.12, Random Cortisol : 4.80 Serum Osmolality : Pending , Urine Osmolality :Pending ,Urine sodium : 91 , Urine Specific [place] : 1.015. She drinks 4-5 glasses of tea a day but no other additional fluids. She claims to eat quite well as well. Recently was started on Trazadone. No other recent medication changes, of note she has been on 20 mg of prednisone for roughly 1 month with a recent down titration of dose to 10 mg daily. patient denies excessive water intake, [id number] supplements, restrictive diet, or other changes though she drinks 4-5 glasses of tea a day but no other additional fluids.She says that has good appetite and eat well. Random cortisol is low at 4.8 however, she is on prednisone as outpatient resulting in secondary adrenal suppression but she has no signs of adrenal insufficiency has good MAP. no metabolic acidosis or hyperkalemia. She did receive 3% saline in the ER with sharp rise in serum sodium, She was then gave D5W which brought it down to 122. Goal will be an increase of 8 by tomorrow morning at 5 AM ( Starting sodium 117 ) Continue to free water restrict, sodium levels every 4. Appreciate Renal Recommendations. Status: Acute (2) COPD (chronic obstructive pulmonary disease): Status: Acute (3) Smoker: Status: Acute Attestations Medical Necessity Statement*: Patient needs to be in hospital for the management of symptomatic hyponatremia.Anticipated LOS Greater then 2 midnights Coding Level of Care Code Acute Auto Body Straightener for Justin Malcolmd Diagnoses Hyponatremia E87.1 COPD (chronic obstructive pulmonary disease) J44.9 Smoker F17.200
[2020-07-12 10:05] LABS: Anion Gap 11.2 (5-19); Blood Urea Nitrogen 7 mg/dL (8-23); Calcium 8.3 mg/dL (8.5-10.5); Carbon Dioxide 27 mmol/L (22-29); Chloride 90 mmol/L (98-107); Glomerular Filtration Rate 161.7 mL/min (90-130); Glucose 120 mg/dL (65-115); Osmolality Calculated 257 mOsm/kg (285-295); Potassium 4.2 mmol/L (3.5-5.1); Sodium 124 mmol/L (136-145)
[2020-07-12] MEDS: enoxaparin 30 mg/0.3 mL Syringe SUBCUT (10:05)
[2020-07-12] MEDS: dextrose 5 % 500 ML 1000 ML IV (12:00)
[2020-07-12 13:47] LABS: Blood Urea Nitrogen 7 mg/dL (8-23); Calcium 8.1 mg/dL (8.5-10.5); Carbon Dioxide 28 mmol/L (22-29); Chloride 87 mmol/L (98-107); Glucose 209 mg/dL (65-115); Osmolality Calculated 258 mOsm/kg (285-295); Sodium 122 mmol/L (136-145)
--- NOTE | 2020-07-12 16:03 | PM.CONSULT ---
Providers/Reason For Consult Consulting Physican/Specialty*: Nephro Reason for Consult*: Hyponatremia Attending Physician: Lamine Sorenson MD Primary Care Provider: Ludwig Haq MD History of Present Illness History of Present Illness Thank you for consultation, today had the pleasure of reviewing this pleasant 60-year-old female for evaluation of hyponatremia. She presents today with some confusion, nausea vomiting, weakness, dizziness. On arrival to the emergency room she was found to have a serum sodium of 117, because of her symptoms of AMS, she did receive 3% saline. The sodium did jump up to 124 within 4 hours and subsequently I did give 1 L of D5W to bring it down. It now measures 122. She does seem to have a chronic history of hyponatremia, although it tends to be historically quite mild i.e. back in April she had a sodium of 134. Admission CT scan of the lungs demonstrated moderate chronic emphysematous changes, no neoplastic disease. Admission urine specific gravity 1.015, ie hypertonic. She reports that she drinks 4-5 glasses of tea a day but no other additional fluids. She claims to eat quite well as well. No recent medication changes, of note she has been on 20 mg of prednisone for roughly 1 month with a recent down titration of dose to 10 mg daily. She denies thyroid disease, hemodynamics reviewed, remain very robust. She denies heart disease, liver disease, kidney disease, nephrotic syndrome, diarrhea, vomiting etc. Denies exposures to thiazide diuretics, SSRIs, opioid analgesics, etc. Review of Systems Narrative: 12 point review of systems completed per HPI and subjective assessment, this includes....Constitutional: No weakness, fatigue. Respiratory: No SOB on exertion, comfortable at rest. CardioVasc: No chest pain, palpitations. Gastrointestinal: No nausea, no vomiting. Neurological: No seizures, no AMS. Derm: No new rashes, lesions or wounds. Immunological: No seasonal and no food allergies Meds/Allergies Home Medications and Allergies Home Medications Medication Instructions Recorded Confirmed Last Taken Type loratadine 10 mg capsule 10 mg PO DAILY@0800 07/25/19 07/12/20 07/11/20 History Oxygen Concentrator and portable #1 ea 12/05/19 07/12/20 Unknown Rx tanks albuterol sulfate 90 mcg/actuation 1 - 2 puff INHALATION Q6H PRN #6.7 04/24/20 07/12/2004/29/21 Rx aerosol inhaler gm fluticasone propion-salmeterol 1 inh INHALATION BID@0800,199904/29/20 07/12/20 04/29/20 History [Advair Diskus] tiotropium bromide [Spiriva with See Rx Instructions .ROUTE .COMPLEX 04/29/20 07/12/20 07/11/20 History HandiHaler] tizanidine 4 mg PO BEDTIME@199904/29/20 07/12/20 04/28/20 History prednisone 10 mg PO DAILY 07/12/20 07/12/20 07/11/20 History trazodone 150 mg PO BEDTIME 07/12/20 07/12/20 07/11/20 History Allergies Allergy/AdvReac Type Severity Reaction Status Date / Time No Known Allergies Allergy Verified 04/29/20 13:19 Current Medications Current Medications Generic Name Dose Route Start Last Admin Trade Name Freq PRN Reason Stop Dose Admin Enoxaparin Sodium 30 mg 07/12/20 09:30 07/12/20 10:05 Enoxaparin 30 Mg/0.3 Ml Syringe SUBCUT 30 mg Q24H JANINE Administration Tiotropium [place] 18 mcg 07/12/20 09:30 07/12/20 10:30 Tiotropium 18 Mcg Mdi INHALATION 1 puff DAILY JANINE Administration PFSH Acute PFSH: Social History Smoking and tobacco status: current every day smoker Alcohol intake: never Housing: House Marital status: Current occupational status: disabled History of recent travel: No Vitals/I&O/Wt Last Vital Signs Temp 97.6 F 07/12/20 05:27 Pulse 72 07/12/20 14:30 Resp 20 H 07/12/20 14:30 BP 136/75 07/12/20 12:00 Pulse Ox 94 07/12/20 11:30 07/12/20 07/12/20 07/12/20 06:59 14:59 22:59 Intake Total 620 / 620 Balance 620 / 620 Weight last 48 hrs Weight 56.699 kg Physical Exam Narrative: EXAM NARRATIVE: Constitutional: Awake, comfortable. HEENT: Wet mucosa, no jvp, non icteric. Lungs: Bilaterally clear without discernible wheeze, rales in all lung zones. CVS: S1, S2, no murmurs. Abdo: Soft, BS ok. Ext 4: Minimal edema, peripheral perfusion with no cyanosis. Neurological: Grossly non-focal Data Micro: Micro: Microbiology 07/12/20 13:10 Blood Culture - Pr eliminary Blood SPECIMEN [facility] 07/12/20 13:03 Blood Culture - Pr eliminary Blood SPECIMEN [facility] A&P Additional A&P Information 1. Euvolemic hyponatremia Picture consistent with SIADH, likely secondary to the emphysematous changes seen on CT scan of the lungs. Of note random cortisol is low at 4.8 however, she is on prednisone as outpatient which will suppress this. Furthermore, this looks nothing like adrenal insufficiency i.e. blood pressure is robust, no acidosis or hyperkalemia. Thyroid function remains stable. She did receive 3% saline in the ER with a precipitous rise in serum sodium, I then gave D5W which brought it down to 122. We will continue to monitor sodium levels closely throughout the course of the evening. Goal will be an increase of 8 by tomorrow morning at 5 AM i.e. sodium level 125 at this time. Continue to free water restrict, sodium levels every 4. 2. Hemodynamics, blood pressure is currently looks well controlled, will continue to monitor hemodynamics during hospitalization. Nicolas Camargo MD Nephrology [phone] Patient seen and examined via telemedicine, with the assistance of the bedside RN > 25 min spent in evaluation and mgmt of patient Coding Level of Care Code Acute Machine Turner for Justin Preston
[2020-07-12 17:36] LABS: Anion Gap 12.4 (5-19); Blood Urea Nitrogen 11 mg/dL (8-23); Calcium 8.6 mg/dL (8.5-10.5); Carbon Dioxide 27 mmol/L (22-29); Chloride 89 mmol/L (98-107); Glucose 87 mg/dL (65-115); Osmolality Calculated 257 mOsm/kg (285-295); Potassium 4.4 mmol/L (3.5-5.1); Sodium 124 mmol/L (136-145)
--- NOTE | 2020-07-12 18:49 | PC.NURSE ---
Sodium tablet not given do to Na being 124.
[2020-07-12] MEDS: tizanidine 4 mg Tablet PO (20:45)
[2020-07-12] MEDS: trazodone 150 mg Tablet PO (20:45)
[2020-07-13] VITALS (40 sets, daily range): BP systolic 81–172; BP diastolic 40–101; PULSE 58–79; RESP 13–28; TEMP 36.2–37.1; O2SAT 82–98
--- NOTE | 2020-07-13 01:11 | PC.NURSE ---
report received from LANDON GIBBONS and care transferred to LANDON Doss
[2020-07-13 05:08] LABS: Basophils % 0.2 %; Eosinophils # 0.3 10^3/uL (0.0-0.8); Eosinophils % 3.5 %; Hematocrit 38.2 % (37.0-47.0); Hemoglobin 12.3 g/dL (11.5-15.3); Lymphocytes # 2.7 10^3/uL (0.8-4.8); Lymphocytes % 29.5 %; Mean Corpuscular HGB Conc 32.2 g/dL (30.0-36.0); Mean Corpuscular Hemoglobin 28.2 pg (28.0-34.0); Mean Corpuscular Volume 87.6 fL (81-99); Mean Platelet Volume 8.6 fL (7.4-10.4); Monocytes # 0.9 10^3/uL (0.2-0.9); Monocytes % 9.4 %; Neutrophils # 5.11 10^3/uL (1.8-7.7); Neutrophils % 56.4 %; Nucleated Red Blood Cells % 0 %; Platelet Count 425 10^3/cmm (130-400); Red Blood Count 4.36 10^6/uL (4.1-5.3); Red Cell Distribution Width 13.2 % (12.1-15.1); White Blood Count 9.1 10^3/uL (4.0-10.0)
[2020-07-13 05:30] LABS: Blood Urea Nitrogen 12 mg/dL (8-23); Calcium 8.8 mg/dL (8.5-10.5); Carbon Dioxide 28 mmol/L (22-29); Chloride 95 mmol/L (98-107); Creatinine Clr Calc Pharmacy 83.0586; Glomerular Filtration Rate 101.3 mL/min (90-130); Glucose 78 mg/dL (65-115); Osmolality Calculated 271 mOsm/kg (285-295); Sodium 131 mmol/L (136-145)
[2020-07-13 05:56] LABS: Anion Gap 12.3 (5-19); Potassium 4.3 mmol/L (3.5-5.1)
--- NOTE | 2020-07-13 07:25 | PC.NURSE ---
Call put into Dr. Camargo regarding Pt Sodium level this am. New orders received.
[2020-07-13] MEDS: dextrose 5% 1,000 ML 500 ML IV ×4 (08:03→13:49)
[2020-07-13] MEDS: loratadine 10 mg Tablet PO (08:03)
[2020-07-13] MEDS: predniSONE 10 mg Tablet PO (10:05)
[2020-07-13] MEDS: enoxaparin 30 mg/0.3 mL Syringe SUBCUT (10:05)
--- NOTE | 2020-07-13 11:16 | PM.PN ---
Subjective Subjective: Interval history: Lynne feels well today, her symptoms of dizziness, weakness, nausea and vomiting are now resolved. She is eating and drinking normally. I have liberalized her fluid intake. Sodium overnight noted to jump up to 131, I gave D5, 1 L and asked her to hydrate more. We are rechecking the sodium level here shortly. No extremity edema, shortness of breath or other hypervolemic symptoms. Vitals/I&O/Wt Last Vital Signs Temp 97.1 F L 07/13/20 06:00 Pulse 63 07/13/20 08:00 Resp 15 07/13/20 08:00 BP 98/56 07/13/20 08:00 Pulse Ox 93 07/13/20 08:00 07/12/20 07/13/20 07/13/20 22:59 06:59 14:59 Intake Total 1170 / 1790 586.667 / 586.667 Output Total 750 / 750 1700 / 1700 Balance 420 / 1040 -1113.333 / -1113.333 Weight last 48 hrs Weight 56.699 kg Physical Exam Narrative: EXAM NARRATIVE: Constitutional: Awake, comfortable. HEENT: Wet mucosa, no jvp, non icteric. Lungs: Bilaterally clear without discernible wheeze, rales in all lung zones. CVS: S1, S2, no murmurs. Abdo: Soft, BS ok. Ext 4: Minimal edema, peripheral perfusion with no cyanosis. Neurological: Grossly non-focal Data : 07/13/20 04:07 07/13/20 04:07 Micro: Microbiology 07/12/20 13:10 Blood Culture - Preliminary Blood SPECIMEN COLLECTED 07/12/20 13:03 Blood Culture - Preliminary Blood SPECIMEN COLLECTED A&P Additional A&P Information 1. Euvolemic hyponatremia Picture consistent with SIADH, likely secondary to the emphysematous changes seen on CT scan of the lungs. Of note random cortisol is low at 4.8 however, she is on prednisone as outpatient which will suppress this. Furthermore, this looks nothing like adrenal insufficiency i.e. blood pressure is robust, no acidosis or hyperkalemia. Thyroid function remains stable. sodium jumped to 131 this morning, 1L of D5w given recheck pending liberalize water intake We will continue to monitor sodium levels closely throughout the course of the evening. Goal will be an increase of 8 by tomorrow morning at 5 AM i.e. sodium level 133 at this time. Continue to free water restrict, sodium levels every 4. 2. Hemodynamics, blood pressure is currently looks well controlled, will continue to monitor hemodynamics during hospitalization. 3. Dispo Will be ok for DC tomorrow when sodium > 130 after safe ascension Nicolas Camargo MD Nephrology [phone] Patient seen and examined via telemedicine, with the assistance of the bedside RN > 25 min spent in evaluation and mgmt of patient Attestations Medical Necessity Statement*: eval for hypoNa Coding Level of Care Code Acute Wrecking Crane Engine Operator for [facility]
[2020-07-13 11:38] LABS: Procalcitonin 0.04 ng/mL (0-0.5)
[2020-07-13 11:49] LABS: Chol HDL Ratio 3.29 mg/dL (0.0-4.40); Cholesterol 168 mg/dL (0-200); HDL Cholesterol 51 mg/dL (60-100); LDL Cholesterol Calculated 100 mg/dL (50-129); LDL HDL Ratio 1.96 RATIO (0.00-3.22); Triglycerides 86 mg/dL (0-150)
--- NOTE | 2020-07-13 11:59 | P.PN_ITS ---
Subjective Subjective: Interval history: Patient was seen and examined this morning.She is resting comfortably in bed, tolerating p.o. intake, denies any vertigo, lightheadedness, nausea,vomiting, diarrhea. Vitals and labs have been reviewed. Overnight serum sodium was high ( 131 ) she was started on D5 water, and was given a liter. With close serum sodium monitoring. Vitals/I&O/Wt Last Vital Signs Temp 97.1 F L 07/13/20 06:00 Pulse 63 07/13/20 08:00 Resp 15 07/13/20 08:00 BP 98/56 07/13/20 08:00 Pulse Ox 93 07/13/20 08:00 07/12/20 07/13/20 07/13/20 22:59 06:59 14:59 Intake Total 1170 / 1790 586.667 / 586.667 Output Total 750 / 750 1700 / 1700 Balance 420 / 1040 -1113.333 / -1113.333 Weight last 48 hrs Weight 56.699 kg Physical Exam Const: COMMON NORMALS: patient oriented x3 and alert ORIENTATION/CONSCIOUSNESS: Yes oriented to person, Yes oriented to place and Yes oriented to time HENMT: COMMON NORMALS: normocephalic, atraumatic, hearing grossly normal bilaterally and external ears normal HEAD & SCALP: normocephalic and atraumatic EXTERNAL EAR: Yes external ears normal Eye: COMMON NORMALS: no scleral icterus GENERAL EYE: appearance normal, both eyes and all related structures Chest: CHEST: Yes Symmetrical chest wall rise Resp: COMMON NORMALS: clear to auscultation bilaterally EFFORT & INSPECTION: Yes symmetric chest movement AUSCULTATION: clear to auscultation bilaterally Cardio: COMMON NORMALS: regular rate, regular rhythm, S1 normal heart sound present, S2 normal heart sound present, No gallops present (Cardio), No murmurs present (Cardio), No rub (Cardio) and Peripheral pulses 2+ throughout RATE: regular rate RHYTHM: regular rhythm HEART SOUNDS: S1 normal heart sound present and S2 normal heart sound present PERIPHERAL PULSES: Peripheral pulses 2+ throughout GI: COMMON NORMALS: Normal to inspection, nondistended, normoactive bowel sounds present, Soft to palpation, non-tender, No hepatosplenomegaly present and no masses AUSCULTATION: Yes normoactive bowel sounds PALPATION: Yes Soft to palpation and Yes No hepatosplenomegaly present RECTAL EXAM: deferred Extremity: COMMON NORMALS: no clubbing, cyanosis or edema and no pedal edema Neuro: COMMON NORMALS: patient oriented x3, CN's II-XII intact bilaterally, moves all extremities, no focal motor deficits and no sensory deficits noted SENSORIUM/ORIENTATION: Yes alert, Yes oriented to person, Yes oriented to place and Yes oriented to time SPEECH: speech normal MOTOR EXAM: 5/5 motor strength present throughout, Pronator motor function not present, Normal motor muscle tone present throughout and Motor abnormalities not present Data : 07/13/20 04:07 07/13/20 11:47 Micro: Microbiology 07/12/20 13:10 Blood Culture - Preliminary Blood SPECIMEN COLLECTED 07/12/20 13:03 Blood Culture - Preliminary Blood SPECIMEN COLLECTED A&P Assessment and plan (1) Hyponatremia: Symptomatic Euvolemic Hyponatremia : 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 BMP : Serum Na : 117 ( most recent documented serum sodium 134 - 05/16 ) , k : 4.4 , Cl: 89 , BUN/SCR : 11/0.5 : TSH : 1.12, Random Cortisol : 4.80 Serum Osmolality : Pending , Urine Osmolality :Pending ,Urine sodium : 91 , Urine Specific [place] : 1.015. She drinks 4-5 glasses of tea a day but no other additional fluids. She claims to eat quite well as well. Recently was started on Trazadone. No other recent medication changes, of note she has been on 20 mg of prednisone for roughly 1 month with a recent down tit ration of dose to 10 mg daily. patient denies excessive water intake, [id number] supplements, restrictive diet, or other changes though she drinks 4-5 glasses of tea a day but no other additional fluids.She says that has good appetite and eat well. Random cortisol is low at 4.8 however, she is on prednisone as outpatient resulting in secondary adrenal suppression but she has no signs of adrenal insufficiency has good MAP. no metabolic acidosis or hyperkalemia. She did receive 3% saline in the ER with sharp rise in serum sodium, She was then given D5W. Appreciate Renal Recommendations. Goal will be an increase of 8 by tomorrow morning at 5 AM (133 ) Salt Tablets on Hold Continue to free water restrict, sodium levels every 4. Status: Acute (2) COPD (chronic obstructive pulmonary disease): Status: Acute (3) Leukocytosis: Resolved. Status: Acute (4) Smoker: Status: Acute Attestations Medical Necessity Statement*: Patient needs to be in hospital for management of symptomatic hyponatremia. Coding Level of Care Code Acute Property And Equipment Clerk for [facility]un Diagnoses Hyponatremia E87.1 COPD (chronic obstructive pulmonary disease) J44.9 Leukocytosis D72.829 Smoker F17.200
[2020-07-13 12:16] LABS: Anion Gap 11.3 (5-19); Blood Urea Nitrogen 11 mg/dL (8-23); Calcium 8.8 mg/dL (8.5-10.5); Carbon Dioxide 27 mmol/L (22-29); Chloride 95 mmol/L (98-107); Glucose 95 mg/dL (65-115); Osmolality Calculated 267 mOsm/kg (285-295); Potassium 4.3 mmol/L (3.5-5.1); Sodium 129 mmol/L (136-145)
[2020-07-13 17:59] LABS: Sodium 131 mmol/L (136-145)
[2020-07-13] MEDS: tizanidine 4 mg Tablet PO (20:13)
[2020-07-13] MEDS: trazodone 150 mg Tablet PO (20:13)
[2020-07-14] VITALS (67 sets, daily range): BP systolic 80–130; BP diastolic 39–71; PULSE 56–87; RESP 15–26; TEMP 36.6–36.7; O2SAT 91–99
[2020-07-14 05:26] LABS: Basophils # 0.1 10^3/uL (0.0-0.1); Basophils % 0.5 %; Eosinophils # 0.3 10^3/uL (0.0-0.8); Eosinophils % 2.6 %; Hematocrit 35.4 % (37.0-47.0); Hemoglobin 11.3 g/dL (11.5-15.3); Lymphocytes # 2.6 10^3/uL (0.8-4.8); Lymphocytes % 23.9 %; Mean Corpuscular HGB Conc 31.9 g/dL (30.0-36.0); Mean Corpuscular Volume 87.8 fL (81-99); Mean Platelet Volume 8.2 fL (7.4-10.4); Monocytes # 0.9 10^3/uL (0.2-0.9); Monocytes % 8.5 %; Neutrophils # 6.99 10^3/uL (1.8-7.7); Neutrophils % 63.8 %; Nucleated Red Blood Cells % 0 %; Platelet Count 395 10^3/cmm (130-400); Red Blood Count 4.03 10^6/uL (4.1-5.3); Red Cell Distribution Width 13.5 % (12.1-15.1)
[2020-07-14 05:46] LABS: Blood Urea Nitrogen 11 mg/dL (8-23); Calcium 8.7 mg/dL (8.5-10.5); Carbon Dioxide 28 mmol/L (22-29); Chloride 101 mmol/L (98-107); Glucose 93 mg/dL (65-115); Osmolality Calculated 281 mOsm/kg (285-295); Sodium 136 mmol/L (136-145)
--- NOTE | 2020-07-14 06:57 | P.PN_ITS ---
Subjective Subjective: Interval history: feels better. no n/v/f/c/ahn/d/sob Medications: Reviewed: Yes Medication Review Details: Current Medications Acetaminophen (Acetaminophen 325 Mg Tablet) 650 mg PO Q6H PRN PRN Reason: Mild/Mod Pain Or Temp >/= 101 Albuterol Sulfate (Albuterol 8 Gm Mdi) 1 - 2 puff INHALATION Q6H PRN PRN Reason: shortness of breath Bisacodyl (Bisacodyl 5 Mg Tablet) 10 mg PO DAILY PRN PRN Reason: CONSTIPATION Enoxaparin Sodium (Enoxaparin 30 Mg/0.3 Ml Syringe) 30 mg SUBCUT Q24H [facility] Last Admin: 07/13/20 10:05 Dose: 30 mg Documented by: Dextrose (D5w) 1,000 mls @ 500 mls/hr IV .Q2H [facility] Last Admin: 07/13/20 17:46 Dose: Not Given Documented by: Loratadine (Loratadine 10 Mg Tablet) 10 mg PO DAILY@0800 [facility] Last Admin: 07/13/20 08:03 Dose: 10 mg Documented by: Meclizine HCl (Meclizine 25 Mg Tablet) 25 mg PO TID PRN PRN Reason: DIZZINESS Ondansetron HCl (Ondansetron 2 Mg/Ml Sdv 2 Ml) 4 mg IVP Q8H PRN PRN Reason: vomiting, or N/V if npo Oxycodone/Acetaminophen (Oxycodone-Apap 5-325 Mg Tablet) 1 tab PO Q4H PRN PRN Reason: SEVERE PAIN Prednisone (Prednisone 10 Mg Tablet) 10 mg PO DAILY [facility] Last Admin: 07/13/20 10:05 Dose: 10 mg Documented by: Fluticasone/Salmeterol (Fluticasone-Salmeterol 500-50 Diskus) 1 puff INHALATION BID@0800,2000 [facility] Last Admin: 07/13/20 20:17 Dose: 1 inhalation Documented by: Sodium Chloride (Sodium Chloride 1 Gm Tablet) 1 gm PO BID [facility] Last Admin: 07/13/20 18:00 Dose: Not Given Documented by: Tiotropium [place] (Tiotropium 18 Mcg Mdi) 18 mcg INHALATION DAILY [facility] Last Admin: 07/13/20 14:23 Dose: Not Given Documented by: Tizanidine HCl (Tizanidine 4 Mg Tablet) 4 mg PO BEDTIME@1999 [facility] Last Admin: 07/13/20 20:13 Dose: 4 mg Documented by: Trazodone HCl (Trazodone 150 Mg Tablet) 150 mg PO BEDTIME [facility] Last Admin: 07/13/20 20:13 Dose: 150 mg Documented by: Vitals/I&O/Wt Last Vital Signs Temp 98.0 F 07/14/20 04:00 Pulse 56 L 07/14/20 06:00 Resp 23 H 07/14/20 04:45 BP 119/64 07/14/20 04:45 Pulse Ox 98 07/14/20 04:45 07/13/20 07/13/20 07/14/20 14:59 22:59 06:59 Intake Total 1806.667 / 9270.782 7023 / 3536.667 200 / 3736.667 Output Total 1700 / 1700 2275 / 3975 200 / 4175 Balance 106.667 / 106.667 -545 / -438.333 0 / -438.333 Physical Exam Narrative: EXAM NARRATIVE: vs noted comfortable NARD heent- nc/at, eomi, anicteric neck no jvp lungs clear b/l heart reg , no rub abd soft, nt, nd, +BS ext no edema neuro- a,a, o x3 skin normal mood normal Data : 07/14/20 05:04 07/14/20 05:04 Micro: Microbiology 07/12/20 13:10 Blood Culture - Preliminary Blood NEGATIVE TO DATE 07/12/20 13:03 Blood Culture - Preliminary Blood NEGATIVE TO DATE A&P Additional A&P Information 1. Hyponatremia -high ur na consistent with SIADH - random cortisol is low at 4.8 however, she is on prednisone as outpatient which will suppress this. -however, clinical picture and quick improvement is atypical for adrenal insufficieny -sodium corrected quickly to 136 this morning, even after 1L of D5w given -likely pt was volume depleted and drank lots of waer -rec for now to monitor serum na on normal diet 2. Hemodynamics, blood pressure is currently looks well controlled, will continue to monitor hemodynamics during hospitalization. renal will see PRN -please call with any questions Patient seen and examined via telemedicine, with the assistance of the bedside RN > 25 min spent in evaluation and mgmt of patient Attestations Medical Necessity Statement*: per medicine. na improved. normal MS Time Spent in Patient Care: 16 - 35 minutes Coding Level of Care Code Acute Elevator Technician for Justin Preston
[2020-07-14] MEDS: ondansetron 2 mg/ML SDV 2 mL 4 MG IVP (08:15)
[2020-07-14] MEDS: loratadine 10 mg Tablet PO (08:16)
[2020-07-14] MEDS: predniSONE 10 mg Tablet PO (08:16)
--- NOTE | 2020-07-14 08:41 | P.PN_ITS ---
Subjective Subjective: Interval history: feels better. no n/v/f/c/ahn/d/sob Medications: Reviewed: Yes Medication Review Details: Current Medications Acetaminophen (Acetaminophen 325 Mg Tablet) 650 mg PO Q6H PRN PRN Reason: Mild/Mod Pain Or Temp >/= 101 Albuterol Sulfate (Albuterol 8 Gm Mdi) 1 - 2 puff INHALATION Q6H PRN PRN Reason: shortness of breath Bisacodyl (Bisacodyl 5 Mg Tablet) 10 mg PO DAILY PRN PRN Reason: CONSTIPATION Enoxaparin Sodium (Enoxaparin 30 Mg/0.3 Ml Syringe) 30 mg SUBCUT Q24H [facility] Last Admin: 07/13/20 10:05 Dose: 30 mg Documented by: Dextrose (D5w) 1,000 mls @ 500 mls/hr IV .Q2H [facility] Last Admin: 07/13/20 17:46 Dose: Not Given Documented by: Loratadine (Loratadine 10 Mg Tablet) 10 mg PO DAILY@0800 [facility] Last Admin: 07/13/20 08:03 Dose: 10 mg Documented by: Meclizine HCl (Meclizine 25 Mg Tablet) 25 mg PO TID PRN PRN Reason: DIZZINESS Ondansetron HCl (Ondansetron 2 Mg/Ml Sdv 2 Ml) 4 mg IVP Q8H PRN PRN Reason: vomiting, or N/V if npo Oxycodone/Acetaminophen (Oxycodone-Apap 5-325 Mg Tablet) 1 tab PO Q4H PRN PRN Reason: SEVERE PAIN Prednisone (Prednisone 10 Mg Tablet) 10 mg PO DAILY [facility] Last Admin: 07/13/20 10:05 Dose: 10 mg Documented by: Fluticasone/Salmeterol (Fluticasone-Salmeterol 500-50 Diskus) 1 puff INHALATION BID@0800,2000 [facility] Last Admin: 07/13/20 20:17 Dose: 1 inhalation Documented by: Sodium Chloride (Sodium Chloride 1 Gm Tablet) 1 gm PO BID [facility] Last Admin: 07/13/20 18:00 Dose: Not Given Documented by: Tiotropium [place] (Tiotropium 18 Mcg Mdi) 18 mcg INHALATION DAILY [facility] Last Admin: 07/13/20 14:23 Dose: Not Given Documented by: Tizanidine HCl (Tizanidine 4 Mg Tablet) 4 mg PO BEDTIME@1999 [facility] Last Admin: 07/13/20 20:13 Dose: 4 mg Documented by: Trazodone HCl (Trazodone 150 Mg Tablet) 150 mg PO BEDTIME [facility] Last Admin: 07/13/20 20:13 Dose: 150 mg Documented by: Vitals/I&O/Wt Last Vital Signs Temp 98.0 F 07/14/20 07:30 Pulse 73 07/14/20 08:15 Resp 16 07/14/20 08:15 BP 128/58 07/14/20 08:15 Pulse Ox 98 07/14/20 08:15 07/13/20 07/14/20 07/14/20 22:59 06:59 14:59 Intake Total 1730 / 3536.667 200 / 3736.667 Output Total 2275 / 3975 200 / 4175 Balance -545 / -438.333 0 / -438.333 Physical Exam Const: COMMON NORMALS: patient oriented x3 and alert ORIENTATION/CONSCIOUSNESS: Yes oriented to person, Yes oriented to place and Yes oriented to time HENMT: COMMON NORMALS: normocephalic, atraumatic, hearing grossly normal bilaterally and external ears normal HEAD & SCALP: normocephalic and atraumatic EXTERNAL EAR: Yes external ears normal Eye: COMMON NORMALS: no scleral icterus GENERAL EYE: appearance normal, razia th eyes and all related structures Chest: CHEST: Yes Symmetrical chest wall rise Resp: COMMON NORMALS: clear to auscultation bilaterally EFFORT & INSPECT ION: Yes symmetric chest movement AUSCULTATION: clear to auscultation bilaterally Cardio: COMMON NORMALS: regular rate, regular rhythm, S1 normal heart sound present, S2 normal heart sound present, No gallops present (Cardio), No murmurs present (Cardio), No rub (Cardio) and Peripheral pulses 2+ throughout RATE: regular rate RHYTHM: regular rhythm HEART SOUNDS: S1 normal heart sound present and S2 normal heart sound present PERIPHERAL PULSES: Peripheral pulses 2+ throughout GI: COMMON NORMALS: Normal to inspection, nondistended, normoactive bowel sounds present, Soft to palpation, non-tender, No hepatosplenomegaly present and no masses AUSCULTATION: Yes normoactive bowel sounds PALPATION: Yes Soft to palpation and Yes No hepatosplenomegaly present RECTAL EXAM: deferred Extremity: COMMON NORMALS: no clubbing, cyanosis or edema and no pedal edema Neuro: COMMON NORMALS: patient oriented x3, CN's II-XII intact bilaterally, moves all extremities, no focal motor deficits and no sensory deficits noted SENSORIUM/ORIENTATION: Yes alert, Yes oriented to person, Yes oriented to place and Yes oriented to time SPEECH: speech normal MOTOR EXAM: 5/5 motor strength present throughout, Pronator motor function not present, Normal motor muscle tone present throughout and Motor abnormalities not present Data : 07/14/20 05:04 07/14/20 05:04 Micro: Microbiology 07/12/20 13:10 Blood Culture - Preliminary Blood NEGATIVE TO DATE 07/12/20 13:03 Blood Culture - Preliminary Blood NEGATIVE TO DATE A&P Assessment and plan (1) Hyponatremia: Symptomatic Euvolemic Hyponatremia : 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 BMP : Serum Na : 117 ( most recent documented serum sodium 134 - 05/16 ) , k : 4.4 , Cl: 89 , BUN/SCR : 11/0.5 : TSH : 1.12, Random Cortisol : 4.80 Serum Osmolality : Pending , Urine Osmolality :Pending ,Urine sodium : 91 , Urine Specific [place] : 1.015. Blood Cultures :Pending She drinks 4-5 glasses of tea a day but no other additional fluids. She claims to eat quite well as well. Recently was started on Trazadone. No other recent medication changes, of note she has been on 20 mg of prednisone for roughly 1 month with a recent down titration of dose to 10 mg daily. patient denies excessive water intake, [id number] supplements, restrictive diet, or other changes though she drinks 4-5 glasses of tea a day but no other additional fluids.She says that has good appetite and eat well. Random cortisol is low at 4.8 however, she is on prednisone as outpatient resulting in secondary adrenal suppression but she has no signs of adrenal insufficiency has good MAP. no metabolic acidosis or hyperkalemia. She did receive 3% saline in the ER with sharp rise in serum sodium, She was then given D5W. Appreciate Renal Recommendations. Goal will be an increase of 8 by tomorrow morning at 5 AM (133 ) Salt Tablets on Hold Continue to free water restrict, sodium levels every 4. Status: Acute (2) COPD (chronic obstructive pulmonary disease): Status: Acute (3) Leukocytosis: Resolved. Status: Acute (4) Smoker: Status: Acute Coding Level of Care Code Acute Director Of Epidemiology for [facility] Fwd Diagnoses Hyponatremia E87.1 COPD (chronic obstructive pulmonary disease) J44.9 Leukocytosis D72.829 Smoker F17.200
[2020-07-14] MEDS: sodium chloride 1 gm Tablet PO (09:41)
[2020-07-14] MEDS: enoxaparin 30 mg/0.3 mL Syringe SUBCUT (09:42)
--- NOTE | 2020-07-14 15:30 | PM.DCS ---
Discharge Providers Date of Admission: 07/12/20 08:57 Date of Discharge: July 14, 2020 Attending Provider at Admission: Lamine Sorenson MD Attending Provider at Discharge: Lamine Sorenson MD Primary Care Provider: Ludwig Haq MD Diagnoses at Discharge Discharge Diagnosis (1) Hyponatremia: (2) COPD (chronic obstructive pulmonary disease): (3) Leukocytosis: (4) Smoker: Reason for Visit Reason for Visit: SOB , N , V Hospital Course Hospital Course Lynne Calderon is a 60 year old female with PMH of COPD on 3Ls home oxygen , chronic smoker , Depression was brought in today with c/o vertigo fells as if objects in the room is spinning infront of her eyes,she is also complaining of generalized weakness, gait instability feels that she will fall if stand, also has nausea and vomiting all of these symptoms are going on for the last 2 days. Patient has not used Trazadone for last 1 week,and is complaining of anxiety. She was worked up for above mentioned complaint. C.T Head without contrast :No acute intra cranial pathology. Xray chest :No consolidation, chronic emphysema. C.T Chest without contrast : Moderate chronic emphysematous changes. No acute pulmonary infiltrates. Slight subsegmental atelectasis in the lung bases right greater than left. No mediastinal or hilar lymphadenopathy. Pertinent Labs : BMP : Serum Na : 117 ( most recent documented serum sodium 134 - 05/16 ) , k : 4.4 , Cl: 89 , BUN/SCR : 11/0.5 : TSH : 1.12, Random Cortisol : 4.80 Serum Osmolality : 261 , Urine Osmolality : 202 Pending ,Urine sodium : 91 , Urine Specific [place] : 1.015. ECA Medications : 3% saline 150 mL's per hour x2 hours. 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 She was encouraged to indulge in balanced diet and avoid excess fluid intake as well excess coffee. Her current medication particularly trazadone can be a contributing factor to the hyponatremia.Currently we will not stop the medication and will follow the BMP. She responded well to the above medical management and at the time of discharge she was not complaining of any vertigo,dizziness,n/v/d,headache,confusion,she was tolerating the diet well and was at her baseline at the time of discharge.Leukocytosis was resolved at the time of discharge,she was not started on any abxs as clinical suspision for bacterial infection was low. Blood cultures were negative. She will continue to follow with in a week with repaet RAFAT. Physical Exam Const: COMMON NORMALS: no acute distress, patient oriented x3, healthy appearing and alert ORIENTATION/CONSCIOUSNESS: Yes oriented to person, Yes oriented to place and Yes oriented to time HENMT: COMMON NORMALS: normocephalic, atraumatic, hearing grossly normal bilaterally and external ears normal HEAD & SCALP: normocephalic and atraumatic EXTERNAL EAR: Yes external ears normal Eye: COMMON NORMALS: Equal, round and reactive pupils present, EOMs intact bilaterally and no scleral icterus GENERAL EYE: appearance normal, both eyes and all related structures PUPIL: Yes Equal, round and reactive pupils present Neck/C-Spine: COMMON NORMALS: full ROM and supple Chest: COMMONS NORMALS: normal inspection of the chest and normal palpation of entire chest wall CHEST: Yes Symmetrical chest wall rise Resp: COMMON NORMALS: normal respiratory effort, No retractions, No use of accessory muscles and clear to auscultation bilaterally EFFORT & INSPECTION: Yes symmetric chest movement AUSCULTATION: clear to auscultation bilaterally Cardio: COMMON NORMALS: regular rate, regular rhythm, S1 normal heart sound present, S2 normal heart sound present, No gallops present (Cardio), No murmurs present (Cardio), No rub (Cardio) and Peripheral pulses 2+ throughout RATE: regular rate RHYTHM: regular rhythm HEART SOUNDS: S1 normal heart sound present and S2 normal heart sound present PERIPHERAL PULSES: Peripheral pulses 2+ throughout GI: COMMON NORMALS: Normal to inspection, nondistended, normoactive bowel sounds present, Soft to palpation, non-tender, No hepatosplenomegaly present and no masses AUSCULTATION: Yes normoactive bowel sounds PALPATION: Yes Soft to palpation and Yes No hepatosplenomegaly present RECTAL EXAM: deferred Extremity: COMMON NORMALS: normal to inspection, full ROM, no clubbing, cyanosis or edema and no pedal edema Neuro: COMMON NORMALS: patient oriented x3, CN's II-XII intact bilaterally, moves all extremities, no focal motor deficits and no sensory deficits noted SENSORIUM/ORIENTATION: Yes alert, Yes oriented to person, Yes oriented to place and Yes oriented to time CRANIAL NERVES: Yes CN normal except as noted SPEECH: speech normal MOTOR EXAM: 5/5 motor strength present throughout, Pronator motor function not present, Normal motor muscle tone present throughout and Motor abnormalities not present Psych: COMMON NORMALS: mental status grossly normal, Normal thought process present and cooperative THOUGHT PROCESS: Normal thought process present Skin: COMMON NORMALS: no rashes or lesions noted and no wounds GENERAL SKIN EXAM: no rashes or lesions noted Discharge Data Data Completed and Pending: Completed Studies During Hospitalization Category Date Time Status CT chest wo con 7 1250 Routine Cat Scan 07/12/20 09:[address] head wo con* 7 0450 Urgent Cat Scan 07/12/20 05:31 Completed XR chest 1V bety ble [id number] Urgent Exams 07/12/20 05:31 Completed Pending at discharge Category Date Time Status Basic Metabolic P cinthia AM LABS Lab 07/15/20 04:00 Ordered Blood Culture Rou nina Lab 07/12/20 13:10 Results Complete Blood Co unt w/Auto AM LABS Lab 07/15/20 04:00 Ordered Comprehensive Met abolic Panel AM LA BS Lab 07/15/20 04:00 Ordered Comprehensive Met abolic Panel AM LA BS Lab 07/16/20 04:00 Ordered Comprehensive Met abolic Panel AM LA BS Lab 07/17/20 04:00 Ordered Osmolality Serum Routine Lab 07/12/20 09:25 Received Osmolality Urine Routine Lab 07/12/20 21:37 Received Labs from last 24 hours 07/14/20 07/14/20 07/13/20 05:04 05:04 17:16 WBC 11.0 H RBC 4.03 L Hgb 11.3 L Hct 35.4 L MCV 87.8 MCH 28.0 MCHC 31.9 RDW 13.5 Plt Count 395 MPV 8.2 Neut % (Auto) 63.8 Lymph % (Auto) 23.9 [place] % (Auto) 8.5 Eos % (Auto) 2.6 Baso % (Auto) 0.5 Neut # (Auto) 6.99 Lymph # (Auto) 2.6 [place] # (Auto) 0.9 Eos # (Auto) 0.3 Baso # (Auto) 0.1 Nucleated RBC % (a uto) 0 Nucleated RBCs # 0.0 Sodium 136 131 L Potassium 4.0 Chloride 101 Carbon Dioxide 28 Anion Gap 11.0 BUN 11 Creatinine 0.5 GFR Calculation 125.0 Glucose 93 Calculated Osmolal ity 281 L Calcium 8.7 Vitals: Last Vital Signs Temp 98 F 07/14/20 12:30 Pulse 75 07/14/20 12:30 Resp 23 H 07/14/20 12:30 BP 123/62 07/14/20 12:30 Pulse Ox 96 07/14/20 12:30 Discharge Plan Discharge Patient Disposition: Home Condition: Stable Prescriptions: Continued loratadine 10 mg capsule 10 mg PO DAILY@0800 RF: 0 (DME) Oxygen Concentrator and portable tanks See Rx Instructions .Route .MEDSUPPLY Qty: 1 RF: 0 albuterol sulfate [ProAir HFA] 90 mcg/actuation HFA aerosol inhaler 1 - 2 puff INHALATION Q6H PRN (Reason: shortness of breath) Qty: 6.7 RF: 3 fluticasone propion-salmeterol [Advair Diskus] 500-50 mcg/dose blister with device 1 inh INHALATION BID@0800,1999 RF: 0 Spiriva with HandiHaler 18 mcg capsule, w/inhalation device See Rx Instructions .ROUTE .COMPLEX RF: 0 tizanidine 4 mg capsule 4 mg PO BEDTIME@1999 RF: 0 prednisone 10 mg tablet 10 mg PO DAILY RF: 0 trazodone 150 mg tablet 150 mg PO BEDTIME RF: 0 Discharge Orders: Discharge Order (Routine); Ordered 07/14/20 Ordered By: Lamine Sorenson Referrals: Ludwig Haq MD [Primary Care Provider] - 1 week Discharge Diet: Regular Discharge Activity: Resume usual activity Patient Instructions: COPD, Hyponatremia, Cigarette Smoking and Your Health (GEN), Leukocytosis (DC) Discharge Attestations Time Spent in Discharge Care*: less than 30 min Specific Discharge Activities: educating patient, educating and/or supporting family/caregiver, discussing with pcp/other providers, discussing with patient case manager/social workers/dc planners, documenting/other paperwork and evaluating patient/reviewing data Status at Discharge: Cognitive status at discharge: cognitively intact, Behavioral status at discharge: cooperative, Functional status at discharge: independent ambulation Overall status at discharge: patient is back to baseline Quality Metrics Clinical Quality Measures During this hospital stay, did patient experience: None Coding Level of Care Code Acute Chg FW SD note Diagnoses Hyponatremia E87.1 COPD (chronic obstructive pulmonary disease) J44.9 Leukocytosis D72.829 Smoker F17.200
[2020-07-14] MEDS: trazodone 150 mg Tablet PO (15:56)
--- NOTE | 2020-07-14 17:35 | PC.NURSE ---
Patient in room resting, Dr Sorenson informed her she could go home if after lunch she no longer had any issues with vomiting, Patient did fine for lunch so was able to discharge. Removed patients iv and discharged her at 1600, Patients only new med was trazodone, Patient left with and brought home her belongings consisting of cell phone, head charger, dentures, and clothes.
--- NOTE | 2020-07-15 13:30 | PC.RESP ---
Smoking Cessation information sent to patient. Patient has been referred for Pulmonary Rehab and is on the waiting list.
[2020-07-15 16:42] LABS: Osmolality Urine 202 mOsm/kg (50-1200)
[2020-07-15 16:42] LABS: Osmolality Serum 261 mOsm/kg (278-305)
== END 2020-07-14 17:22 | disposition home or self-care (01) | DRG 641 ==
LOC: ER 06:16 → ICU 08:06
PROVIDERS: Emergency Medicine; Internal Medicine Nephrology; Admitting Provider Internal Medicine; Emergency Provider Family Medicine; PCP Internal Medicine; Visit Provider Internal Medicine
DX: E87.1 Hypo-osmolality and hyponatremia (principal); J43.1 Panlobular emphysema; Z99.81 Dependence on supplemental oxygen; F41.8 Other specified anxiety disorders; F17.210 Nicotine dependence, cigarettes, uncomplicated
CPT/HCPCS: 36415; 70450; 71045; 71250; 80048; 80053; 80061; 81001; 82533; 83690; 83880; 83930; 83935; 84145; 84295; 84300; 84443; 85025; 87040; 93005; 94640; 96361; 96372; 96374; 99285; J1650; J2405; J7131; J7512; J8597; Q3014

== ENCOUNTER → 2020-07-22 16:03 | Outpatient (BNVA) | payer MEDICARE, SELFPAY | PROVIDERS: PCP Internal Medicine; Visit Provider Internal Medicine | DX: E22.2 Syndrome of inappropriate secretion of antidiuretic hormone (principal); E87.6 Hypokalemia; J43.1 Panlobular emphysema | CPT/HCPCS: 80048 ==

== ENCOUNTER 2021-02-23 00:15 | Emergency (ER) | payer MEDICARE, SELFPAY ==
[2021-02-23] VITALS (13 sets, daily range): BP systolic 146–156; BP diastolic 71–92; PULSE 66–95; RESP 18–30; TEMP 36.3; O2SAT 93–100; BMI 21.2
--- NOTE | 2021-02-23 00:53 | ECG_ITS ---
[facility] Test Date: 2021-02-23 Pat Name: Lynne Calderon Department: Room: Gender: Female Training And Development Professional: : 1960 Requested By: Marcus Valenzuela Order Number: [id number] Ann MD: LORE VALENTINE Measurements Intervals [place] Rate: 80 P: 83 NE: 159 QRS: 72 QRSD: 92 T: 51 QT: 366 QTc: 423 Interpretive Statements SINUS RHYTHM Compared to ECG 07/12/2020 05:38:26 No significant changes Electronically Signed On 02-24-2021 0:11:09 CDT by LORE VALENTINE [id number]
--- NOTE | 2021-02-23 00:53 | XRR_ITS ---
PROCEDURE INFORMATION: Exam: XR Chest Exam date and time: 02/23/2021 12:53 AM Age: 60 years old Clinical indication: Dyspnea; Additional info: SOB TECHNIQUE: Imaging protocol: XR of the chest. Views: 1 view. COMPARISON: CT chest con [id number] 07/12/2020 3:44 PM FINDINGS: Lungs: There is a background of centrilobular emphysema. Strandy opacities are seen in the right lower hemithorax likely representing atelectasis versus parenchymal scarring. Pleural spaces: Unremarkable. No pleural effusion. No pneumothorax. Heart/Mediastinum: Unremarkable. No cardiomegaly. Bones/joints: There is evidence of a healed 7th rib fracture on the left. XR/XR chest 1V portable [id number] IMPRESSION: Background of emphysema with probable right lower lobe atelectasis versus parenchymal scarring. Radiation Dose CTDIVOL = (mGy): DLP = (mGy-cm)
[2021-02-23 01:00] LABS: Basophils % 0.3 %; Eosinophils # 0.4 10^3/uL (0.0-0.8); Eosinophils % 3.5 %; Hematocrit 41.9 % (37.0-47.0); Hemoglobin 12.8 g/dL (11.5-15.3); Mean Corpuscular HGB Conc 30.5 g/dL (30.0-36.0); Mean Corpuscular Hemoglobin 28.1 pg (28.0-34.0); Mean Corpuscular Volume 92.1 fl (81-99); Mean Platelet Volume 8.5 fL (7.4-10.4); Monocytes # 0.6 10^3/uL (0.2-0.9); Monocytes % 5.1 %; Neutrophils # 7.43 10^3/uL (1.8-7.7); Neutrophils % 64.8 %; Nucleated Red Blood Cells % 0 %; Platelet Count 394 10^3/cmm (130-400); Red Blood Count 4.55 10^6/uL (4.1-5.3); Red Cell Distribution Width 12.5 % (12.1-15.1); White Blood Count 11.5 10^3/uL (4.0-10.0)
[2021-02-23] MEDS: sodium chloride 0.9% 500 ML 999 ML IV (01:10)
[2021-02-23 01:16] LABS: Lactic Sepsis W/Reflex 0.9 mmol/L (0.5-2.2)
[2021-02-23 01:26] LABS: Alanine Aminotransferase 12 U/L (0-33); Albumin Level 4.6 g/dL (3.5-5.2); Alkaline Phosphatase 57 IU/L (35-105); Anion Gap 12.2 (5-19); Aspartate Amino Transferase 11 U/L (0-32); Blood Urea Nitrogen 17 mg/dL (8-23); Calcium 9.6 mg/dL (8.5-10.5); Carbon Dioxide 31 mmol/L (22-29); Chloride 99 mmol/L (98-107); Globulin 2.3 g/dL (1.3-4.6); Glomerular Filtration Rate 101.3 mL/min (90-130); Glucose 111 mg/dL (65-115); NT Pro B Type Natriuretic Pept 45 pg/mL (0-125); Osmolality Calculated 288 mOsm/kg (285-295); Potassium 4.2 mmol/L (3.5-5.1); Sodium 138 mmol/L (136-145); Total Bilirubin 0.3 mg/dL (0.15-1.2); Total Protein 6.9 g/dL (6.6-8.7)
[2021-02-23 01:31] LABS: ABG PCO2 55.8 mmHg (35-45); ABG PH Result 7.35 (7.35-7.45); Arterial Blood Gas Hematocrit 35.7 % (37-47); Base Excess ABG 4.1 mmol/L (-2.0-2.0); Blood Gas Allen Test Pos; Blood Gas Sample Site Radial, left; Blood Gas Sample Type Arterial; Carboxyhemoglobin 1.6 %THgb (0.4-20.1); HCO3 ABG 30.9 mmol/L (22-26); HGB O2 Sat 96.9 % (95-100); Methemoglobin 0.3 % (0.4-1.5); Oxygen Device NC; Total Hemoglobin 11.6 g/dL (12-16)
[2021-02-23] MEDS: ipratropium-albuterol 3 mL Neb INHALATION (01:39)
--- NOTE | 2021-02-23 01:41 | W.ED.SOB ---
HPI - SOB/Dyspnea General: Chief Complaint: Shortness of Breath/Dyspnea Stated Complaint: SOB Time Seen by Provider: 02/23/21 00:20 History of Present Illness: HPI Narrative: 60-year-old female with a history of COPD. She presents with worsening shortness of breath over the past couple of days she also notes that she ran out of her nebulizer solution a couple of months ago, and her inhaler 2 days ago. She denies any fever. She has some sputum production that is clear. She does use home oxygen. MD elicited complaint: shortness of breath, cough and asthma attack Pertinent past history: COPD Onset (ago): day(s) Timing: constant and progressively worsening Severity: moderate Exacerbating factors: lying flat and exertion Relieving factors: oxygen and bronchodilators Known history of: COPD Associated symptoms: Reports chest congestion, cough and orthopnea; Deny chest pain, extremity pain, fever(s), nausea, palpitations or vomiting Review of Systems Const: Denies: fever(s) Card: Reports: orthopnea; Denies: chest pain or palpitations Resp: Reports: chest congestion GI: Denies: nausea or vomiting Musc: Denies: extremity pain PFSH ED PFSH: Medical History COPD (chronic obstructive pulmonary disease) Hyponatremia Leukocytosis Smoker Social History Smoking and tobacco status: former smoker Alcohol intake: never Housing: House Marital status: Current occupational status: disabled History of recent travel: No Physical Exam Const: COMMON NORMALS: patient oriented x3 and alert GENERAL APPEARANCE: cooperative, ill appearing (mild) and frail appearing NUTRITIONAL APPEARANCE: thin Eye: COMMON NORMALS: Equal, round and reactive pupils present and EOMs intact bilaterally PUPIL: Yes Equal, round and reactive pupils present Chest: COMMONS NORMALS: normal inspection of the chest Resp: EFFORT & INSPECTION: Yes tachypneic and Yes uses accessory muscles AUSCULTATION: wheezes Cardio: COMMON NORMALS: regular rate and regular rhythm RATE: regular rate RHYTHM: regular rhythm GI: COMMON NORMALS: Normal to inspection, nondistended, normoactive bowel sounds present and Soft to palpation PALPATION: Yes Soft to palpation Neuro: COMMON NORMALS: patient oriented x3 SENSORIUM/ORIENTATION: Yes alert Course Vital Signs: Vital signs: Vital Signs Temperature 97.3 F L 02/23/21 00:26 Pulse Rate 70 02/23/21 02:15 Respiratory Rate 18 02/23/21 02:10 Blood Pressure 150/79 02/23/21 02:10 Pulse Oximetry 99 02/23/21 02:10 MDM - SOB/Dyspnea MDM Narrative: Medical decision making narrative: 60-year-old lady with a history of COPD. She is out of her bronchodilators at home both nebulized and inhaler she has no fever. ABG appears nonacidotic. Likely at her baseline. Her laboratory is benign. She will be allowed home with her home oxygen, dispensed bronchodilator, prescriptions, and treatment for acute exacerbation of COPD Lab Data: Labs: Lab Results 02/23/21 02/23/21 02/23/21 00:37 00:37 00:37 WBC 11.5 10^3/uL H 10 ^3/uL (4.0-10.0) RBC 4.55 10^6/uL 10^6 /uL (4.1-5.3) Hgb 12.8 g/dL g/dL (11.5-15.3) Hct 41.9 % % (37.0-47.0) MCV 92.1 fl fl (81-99) MCH 28.1 pg pg (28.0-34.0) MCHC 30.5 g/dL g/dL (30.0-36.0) RDW 12.5 % % (12.1-15.1) Plt Count 394 10^3/cmm 10^3 /cmm (130-400) MPV 8.5 fL fL (7.4-10.4) Neut % (Auto) 64.8 % % Lymph % (Auto) 26.0 % % [place] % (Auto) 5.1 % % Eos % (Auto) 3.5 % % Baso % (Auto) 0.3 % % Neut # (Auto) 7.43 10^3/uL 10^3 /uL (1.8-7.7) Lymph # (Auto) 3.0 10^3/uL 10^3/ uL (0.8-4.8) [place] # (Auto) 0.6 10^3/uL 10^3/ uL (0.2-0.9) Eos # (Auto) 0.4 10^3/uL 10^3/ uL (0.0-0.8) Baso # (Auto) 0.0 10^3/uL 10^3/ uL (0.0-0.1) Nucleated RBC % (a uto) 0 % % Nucleated RBCs # 0.0 /100WBC /100W BC Specimen Type Sample Site ABG pH ABG pCO2 ABG pO2 ABG HCO3 ABG Base Excess Steven Test Hematocrit Hgb O2 Saturation Carboxyhemoglobin Methemoglobin Total Hemoglobin O2 Delivery Device O2 Liters/Min Chair Spring Assembler ID Sodium 138 mmol/L mmol/L (136-145) Potassium 4.2 mmol/L mmol/L (3.5-5.1) Chloride 99 mmol/L mmol/L (98-107) Carbon Dioxide 31 mmol/L H mmol/ L (22-29) Anion Gap 12.2 (5-19) BUN 17 mg/dL mg/dL (8-23) Creatinine 0.6 mg/dL mg/dL (0.5-0.9) GFR Calculation 101.3 mL/min mL/m in (90-130) Glucose 111 mg/dL mg/dL (65-115) Calculated Osmolal ity 288 mOsm/kg mOsm/ kg (285-295) Lactic Acid 0.9 mmol/L mmol/L (0.5-2.2) Calcium 9.6 mg/dL mg/dL (8.5-10.5) Total Bilirubin 0.3 mg/dL mg/dL (0.15-1.2) AST 11 U/L U/L (0-32) ALT 12 U/L U/L (0-33) Alkaline Phosphata se 57 IU/L IU/L (35-105) NT-Pro-B Natriuret Pep 45 pg/mL pg/mL (0-125) Total Protein 6.9 g/dL g/dL (6.6-8.7) Albumin 4.6 g/dL g/dL (3.5-5.2) Globulin 2.3 g/dL g/dL (1.3-4.6) 02/23/21 01:19 WBC RBC Hgb Hct MCV MCH MCHC RDW Plt Count MPV Neut % (Auto) Lymph % (Auto) [place] % (Auto) Eos % (Auto) Baso % (Auto) Neut # (Auto) Lymph # (Auto) [place] # (Auto) Eos # (Auto) Baso # (Auto) Nucleated RBC % (a uto) Nucleated RBCs # Specimen Type Arterial Sample Site Radial, left ABG pH 7.35 (7.35-7.45) ABG pCO2 55.8 mmHg H mmHg (35-45) ABG pO2 109.0 mmHg H mmHg (80.0-100.0) ABG HCO3 30.9 mmol/L H mmo l/L (22-26) ABG Base Excess 4.1 mmol/L H mmol /L (-2.0-2.0) Steven Test Pos Hematocrit 35.7 % L % (37-47) Hgb O2 Saturation 96.9 % % (95-100) Carboxyhemoglobin 1.6 %THgb %THgb (0.4-20.1) Methemoglobin 0.3 % L % (0.4-1.5) Total Hemoglobin 11.6 g/dL L g/dL (12-16) O2 Delivery Device Nc O2 Liters/Min 3.0 % % Chair Spring Assembler ID Buttr Sodium Potassium Chloride Carbon Dioxide Anion Gap BUN Creatinine GFR Calculation Glucose Calculated Osmolal ity Lactic Acid Calcium Total Bilirubin AST ALT Alkaline Phosphata se NT-Pro-B Natriuret Pep Total Protein Albumin Globulin Discharge Plan Discharge Patient Disposition: Home Clinical Impression: Acute exacerbation of chronic obstructive airways disease Condition: Stable Prescriptions: New albuterol sulfate 2.5 mg/0.5 mL solution for nebulization 2.5 mg inhalation Q4H PRN (Reason: shortness of breath or wheezing) Qty: 30 RF: 0 Continued doxycycline hyclate 100 mg capsule 100 mg PO BID 7 Days Qty: 14 RF: 0 ProAir HFA 90 mcg/actuation HFA aerosol inhaler 1 - 2 puff INHALATION Q6H PRN (Reason: shortness of breath) Qty: 6.7 RF: 3 Changed prednisone 10 mg tablet 40 mg PO DAILY Qty: 20 RF: 3 No Action loratadine 10 mg capsule 10 mg PO DAILY@0800 RF: 0 (DME) Oxygen Concentrator and portable tanks See Rx Instructions .Route .MEDSUPPLY Qty: 1 RF: 0 aripiprazole [Abilify] 5 mg tablet 5 mg PO DAILY Qty: 30 RF: 6 tizanidine 4 mg capsule 4 mg PO BEDTIME@2000 Qty: 7 RF: 0 Spiriva with HandiHaler 18 mcg capsule, w/inhalation device See Rx Instructions .ROUTE .COMPLEX Qty: 180 RF: 0 fluticasone propion-salmeterol [Advair Diskus] 500-50 mcg/dose blister with device 1 inh INHALATION BID@0800,2000 RF: 0 trazodone 150 mg tablet 150 mg PO BEDTIME RF: 0 Discharge Orders: Discharge ED (Routine); Ordered 02/23/21 Ordered By: Marcus Hinkle Referrals: Ludwig Haq MD [Primary Care Provider] - 4-7 days Discharge Diet: Advance as tolerated Discharge Activity: Increase activity as tolerated Patient Instructions: COPD (Chronic Obstructive Pulmonary Disease) (ED) Activity Restrictions/Additional Instructions: Medications as directed. Use your nebulizer every 4 hours while awake scheduled for the next 48 hours, then as needed. Return for fever greater than 100, worsening shortness of breath despite treatment, any other concerning symptoms. Coding Level of Care Code ED Display Designer Outside for Justin Fwd Exam Detailed
== END 2021-02-23 02:25 | disposition home or self-care (01) ==
PROVIDERS: Emergency Provider Emergency Medicine; PCP Internal Medicine
DX: J44.1 Chronic obstructive pulmonary disease with (acute) exacerbation (principal); Z87.891 Personal history of nicotine dependence
CPT/HCPCS: 36600; 71045; 80053; 82805; 83605; 83880; 85025; 93005; 94640; 96374; 99284; J2930; J7040